=== PATIENT | female | born 1955 | race Caucasian/White ===

== ENCOUNTER → 2017-04-07 | Outpatient (CLI) | payer BC ==
--- NOTE | 2017-04-07 10:40 | WWHP ---
DATE OF SERVICE; 04/07/2017 CHIEF COMPLAINT: The patient is here for her routine gynecologic exam and mammogram. HPI: This is a 61-year-old G1, P1 with an LMP of 2002. She is status post SHANTEL/BSO for benign reasons. She has noticed a right breast lump, which was first noticed after falling on the right breast in March of 2016. She states it was badly bruised at the time. The lump has gradually gotten slightly smaller according to the patient, but is still there. She is otherwise without complaints. PAST MEDICAL HISTORY: Hypothyroidism, asthma, migraine headaches, TMJ, and chronic back problems. MEDICATIONS: 1. Synthroid 75 mcg daily. 2. Ambien 10 mg p.r.n.. 3. Magnesium 250 mg 1 to 2 daily. 4. Vitamin D3 five thousand units daily. 5. Multivitamin daily. ALLERGIES: No known drug allergies. 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 SOCIAL HISTORY: She briefly smoked in high school, but quit since then. She has about 0 to 2 alcoholic drinks per week and denies drug use. 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 She has been since 1975. FAMILY HISTORY: Mother has renal cancer and hypertension as well as a history of the atrial fibrillation and diabetes. Father had an DC. Maternal aunt and maternal niece had breast cancer. Maternal grandmother also had breast cancer. Grandfather had prostate cancer. REVIEW OF SYSTEMS: She has lost about 9 pounds over the last year. She denies cardiac or GI problems. Respiratory problems, she recently got over a URI PHYSICAL EXAM: Blood pressure 121/79. Height 5 feet 2 inches. Weight 158 pounds. Temperature 98.2, pulse 80. This is a well-developed, well-nourished white female who is alert and oriented x3, in no acute distress. HEENT is within normal limits. NECK: Supple without mass or thyromegaly. CHEST AND LUNGS: Clear to auscultation. HEART: Regular rate and rhythm. Breasts, there is palpable mass in the right breast at approximately the 10 o'clock position. This measures approximately 2 x 1 cm and is somewhat firm and nontender. This is the area that she states she has noticed a since falling on the breast. The rest of the breasts are without mass or discharge. Axillary exam is negative for adenopathy. BACK: Negative for CVA tenderness. ABDOMEN: Soft, nontender, without palpable masses. PELVIC EXAM: External genitalia reveals mild atrophy without lesions. Vagina reveals mild atrophy without lesions. There is no evidence of prolapse. Bimanual exam is negative for mass or tenderness. Rectovaginal exam is negative for mass or tenderness and is negative for occult blood. EXTREMITIES: Nontender. IMPRESSION: 1. A 61-year-old menopausal female who is status post total abdominal hysterectomy/bilateral salpingo-oophorectomy for benign reasons. 2. Right breast mass, which was noticed after trauma to the breast. Differential diagnosis will include a benign mass secondary to breast trauma as well as other breast neoplasm. PLAN: 1. Pap smears have been discontinued. 2. Self breast examination was discussed. 3. Diagnostic mammogram with right breast ultrasound will be done today. The palpable lump was marked. 4. Osteoporosis prevention was discussed. We will plan on repeating her bone density test next year. Her last one was normal in 2008. 5. She will return in one year.
--- NOTE | 2017-04-07 11:34 | MM ---
Reason for exam: clinical finding. Last mammogram was performed 1 year ago. History: Patient is postmenopausal. Family history of breast cancer in maternal grandmother at age 80 and breast cancer in maternal aunt at age 70. Benign right mammotome panel of the right breast, April 14, 2008. Reductions of both breasts, 1985. Took hormonal contraceptives for 2 years. Took estrogen for 1 year 5 months beginning at age 53. Physical Findings: Nurse did not find any significant physical abnormalities on exam. MG 3D Diag Mammo W/Cad NEW Bilateral CC and MLO view(s) were taken. Prior study comparison: April 02, 2016, bilateral MG 3d screening mammo w/cad. March 13, 2015, bilateral MG screening mammo w CAD. March 08, 2014, bilateral digital screening mammo w/CAD. There are scattered fibroglandular densities. Previous mammotome biopsy within the right breast. 3 new mixed density focal asymmetrys suspected to represent large early oil cysts in the upper outer quadrant right breast, the larger of which correspond to the palpable site. These results were verbally communicated with the patient and result sheet given to the patient on 04/07/17. ASSESSMENT: Incomplete: need additional imaging evaluation, BI-RAD 0 RECOMMENDATION: Ultrasound of the right breast.
--- NOTE | 2017-04-07 11:40 | USB ---
Reason for exam: additional evaluation requested from abnormal screening. History: Patient is postmenopausal. Family history of breast cancer in maternal grandmother at age 80 and breast cancer in maternal aunt at age 70. Benign right mammotome panel of the right breast, April 14, 2008. Reductions of both breasts, 1985. Took hormonal contraceptives for 2 years. Took estrogen for 1 year 5 months beginning at age 53. US Breast RT Right breast ultrasound includes all four quadrants, the retroareolar region and axilla. Finding demonstrates a 11 x 7 x 5 mm cystic complex lesion at 8 o'clock , a 15 x 12 x 13mm cystic complex lesion at 10 o'clock, 5 cm from nipple. The larger is at the palpable site. Debris filled oil cysts or hematomas with retractile clot are favored relating to the patients injury. These results were verbally communicated with the patient and result sheet given to the patient on 04/07/17. ASSESSMENT: Probably benign, BI-RAD 3 RECOMMENDATION: Follow-up diagnostic mammogram of the right breast in 6 months. SHALOM
== END | disposition home or self-care (01) ==
LOC: WWCWWP 09:25
PROVIDERS: ATTEND Obstetrics & Gynecology
DX: R92.8 Other abnormal and inconclusive findings on diagnostic imaging of breast (principal); N63 Unspecified lump in breast
CPT/HCPCS: 76641; G0204; G0279

== ENCOUNTER → 2017-10-08 | Outpatient (CLI) | payer BC ==
--- NOTE | 2017-10-08 11:18 | MM ---
Reason for exam: follow-up at short interval from prior study. Last mammogram was performed 6 months ago. History: Patient is postmenopausal. Family history of breast cancer in maternal grandmother at age 80 and breast cancer in maternal aunt at age 70. Benign right mammotome panel of the right breast, April 14, 2008. Reductions of both breasts, 1985. Took hormonal contraceptives for 2 years. Took estrogen for 1 year 5 months beginning at age 53. Physical Findings: Nurse Summary: 2 x 2cm nodule in the right breast at 10 o'clock (nurse ts). MG 3D Diag Mammo W/Cad RT CC and MLO view(s) were taken of the right breast. Prior study comparison: April 07, 2017, bilateral MG 3d diag mammo w/cad NEW. April 02, 2016, bilateral MG 3d screening mammo w/cad. There are scattered fibroglandular densities. Finding #1: There is a stable 15 mm circumscribed round mass in the upper outer quadrant of the right breast. Finding #2: There are typically benign round calcifications in the right breast. Previous mammotome biopsy in the right breast. There is no dominant lesion. These results were verbally communicated with the patient and result sheet given to the patient on 10/08/17. ASSESSMENT: Incomplete: need additional imaging evaluation, BI-RAD 0 RECOMMENDATION: Ultrasound of the right breast.
--- NOTE | 2017-10-08 11:20 | USB ---
Reason for exam: additional evaluation requested from abnormal screening. History: Patient is postmenopausal. Family history of breast cancer in maternal grandmother at age 80 and breast cancer in maternal aunt at age 70. Benign right mammotome panel of the right breast, April 14, 2008. Reductions of both breasts, 1985. Took hormonal contraceptives for 2 years. Took estrogen for 1 year 5 months beginning at age 53. US Breast Limited RT Right breast ultrasound demonstrates a 0.5 x 0.5 x 1.1cm round, mixed, stable lesion at 8 o'clock, a 1.2 x 1.3 x 0.9cm oval, mixed lesion at 10 o'clock slightly smaller and a 0.4 x 1.0 x 0.4cm vague, mixed lesion at 9 o'clock. These results were verbally communicated with the patient and result sheet given to the patient on 10/08/17. ASSESSMENT: Probably benign, BI-RAD 3 RECOMMENDATION: Ultrasound of the right breast in 3 months.
== END | disposition home or self-care (01) ==
LOC: RADMAMWWP 08:54
PROVIDERS: ATTEND Obstetrics & Gynecology
DX: R92.8 Other abnormal and inconclusive findings on diagnostic imaging of breast (principal)
CPT/HCPCS: 76642; G0206; G0279

== ENCOUNTER → 2018-04-27 | Outpatient (CLI) | payer BC ==
[2018-04-27 13:39] VITALS: BP 142/84; PULSE 91; TEMP 98.5; BMI 30.9
--- NOTE | 2018-04-27 14:13 | P.HPOB ---
History of Present Illness H&P Date: 04/27/18 Chief Complaint: The patient is here for her routine gynecologic exam and mammogram. This is a 62-year-old with an LMP of 2002. The patient is status post SHANTEL BSO for benign reasons. She does have a history of a right breast lump since March 2016. After her mammogram and six-month right breast ultrasound, a repeat right breast ultrasound was recommended after 3 months. This was due in December of this year. She did not have this done. She is without gynecologic complaints. She does think that the right breast mass has gotten smaller. Review of Systems The patient has gained 11 pounds over the last year. She denies respiratory or cardiac problems. G.I.: she has occasional heartburn. Past Medical History Past Medical History: Asthma, Thyroid Disorder (Hypothyroid) Additional Past Medical History / Comment(s): Chronic back problems, migraine headaches and TMJ. 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 She has no history of STDs. History of Any Multi-Drug Resistant Organisms: None Reported Past Surgical History: Breast Surgery (Bilateral breast reduction), Hysterectomy (SHANTEL BSO in 2002), Tonsillectomy Additional Past Surgical History / Comment(s): Colonoscopy in 2005. Past Psychological History: No Psychological Hx Reported Smoking Status: Former smoker (Quit after high school) Past Alcohol Use History: Occasional Past Drug Use History: None Reported Additional History: She has been since 1975. 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 - Past Family History Mother Family Medical History: AFIB, Cancer (Renal), Hypertension Additional Family Medical History / Comment(s): Maternal grandmother and maternal aunt had breast cancer. Grandfather had prostate cancer. Father Family Medical History: Myocardial Infarction ([place]) Medications and Allergies Home Medications Medication Instructions Recorded Confirmed Type Calcium Carbonate [Calcium] mg PO DAILY 04/27/18 History Levothyroxine Sodium [Synthroid] mcg PO DAILY 04/27/18 History Multivitamin [Multivitamins Adult tab PO DAILY 04/27/18 History Gummies] Allergies Allergy/AdvReac Type Severity Reaction Status Date / Time No Known Allergies Allergy Verified 04/27/18 13:36 Exam - Vital Signs Vital signs: Vital Signs Temp Pulse BP 04/27/18 13:36 98.5 F 91 142/84 Intake and Output 04/26/18 04/27/18 04/27/18 22:59 06:59 14:59 Other: Weight 76.657 kg Height 5'2", BMI 30.9. This is a well-developed well-nourished white female who is alert and oriented times 3 in no acute distress. HEENT: Within normal limits. NECK: Supple without mass or thyromegaly. CHEST AND LUNGS: Clear to auscultation. HEART: Regular rate and rhythm. BREASTS: there is a palpable mass in the right breast is approximately the 10 o' clock position. This measures 1.5 cm and his firm and nontender. There are no other palpable breast masses or tenderness. There is no nipple discharge. There is no dimpling. AXILLARY EXAM: Negative for adenopathy. BACK: Negative for CVA tenderness. ABDOMEN: Soft, nontender, without palpable masses. PELVIC EXAM: External genitalia appears normal with mild atrophy. Vagina appears normal with mild atrophy. There is no evidence of prolapse. Bimanual examination is negative for mass or tenderness. RECTAL EXAM: Rectovaginal exam is negative for mass or tenderness and is negative for occult blood. EXTREMITIES: Nontender. IMPRESSION: 1. 62-year-old menopause female status post SHANTEL BSO for benign reasons with normal pelvic exam. 2. Right breast mass which has decreased in size per the patient PLAN: 1. Pap smears have been discontinued. 2. Self breast awareness was discussed. 3. Diagnostic mammogram will be done today. 4. I have recommended screening colonoscopy since it is been more than 10 years since her last one. She states she is looking into doing this. 5. Osteoporosis prevention was discussed. A bone density order slip was given to the patient. 6. She will return in one year.
--- NOTE | 2018-04-27 15:00 | MM ---
Reason for exam: follow-up at short interval from prior study. Last mammogram was performed 7 months ago. History: Patient is postmenopausal. Family history of breast cancer in maternal grandmother at age 80 and breast cancer in maternal aunt at age 70. Benign right mammotome panel of the right breast, April 14, 2008. Reductions of both breasts, 1985. Took hormonal contraceptives for 2 years. Took estrogen for 1 year 5 months beginning at age 53. Physical Findings: Nurse Summary: 1.5cm nodule in the right breast at 10 o'clock (Dr. Gentile). MG 3D Diag Mammo W/Cad NEW Bilateral CC and MLO view(s) were taken. Prior study comparison: October 08, 2017, right breast MG 3d diag mammo w/cad RT. April 07, 2017, bilateral MG 3d diag mammo w/cad NEW. There are scattered fibroglandular densities. Palpable area was seen previously and is felt to reflect calcification oil cyst. No suspicious mass. These results were verbally communicated with the patient and result sheet given to the patient on 04/27/18. ASSESSMENT: Benign, BI-RAD 2 RECOMMENDATION: Routine screening mammogram of both breasts in 1 year. Manage patient on a clinical basis.
== END | disposition home or self-care (01) ==
LOC: WWCWWP 13:24
PROVIDERS: ATTEND Obstetrics & Gynecology
DX: R92.8 Other abnormal and inconclusive findings on diagnostic imaging of breast (principal)
CPT/HCPCS: 77062; 77066

== ENCOUNTER 2018-05-06 09:37 | Day surgery (SDC) | payer BC ==
[2018-05-04 11:09] VITALS: BMI 31.1
[~2018-05-06 09:37] MED LIST: LACTATED RINGERS 1,000 ML IV SCH; MIDAZOLAM 2 MG/2 ML VIAL IV PRN
[2018-05-06 10:27] VITALS: RESP 16; TEMP 98.7
[2018-05-06] MEDS ORDERED: LIDOCAINE 1% 20 ML VIAL (10MG/ML) FOR IV START INTRADERMA ONE (10:43)
[2018-05-06] MEDS ORDERED: LIDOCAINE 1% INJ 10MG/ML (20 ML MDV) ONE (10:55)
[2018-05-06] MEDS ORDERED: PROPOFOL 10 MG/ML 20 ML VIAL IV ONE (10:55)
--- NOTE | 2018-05-06 11:13 | P.PCN ---
Date of Procedure: 05/06/18 Procedure(s) Performed: BRIEF HISTORY: Patient is a 62-year-old pleasant white female, scheduled for an elective colonoscopy as a part of screening for colorectal neoplasia. PROCEDURE PERFORMED: Colonoscopy. PREOPERATIVE DIAGNOSIS: Screening for colon cancer. IV sedation per Anesthesia. PROCEDURE: After informed consent was obtained, the patient, was brought into the endoscopy unit. IV sedation was administered by Anesthesia under continuous monitoring. Digital rectal examination was normal. Initially the Olympus CF- 160 flexible video colonoscope was then inserted in the rectum, gradually advanced into the cecum without any difficulty. Careful examination was performed as the scope was gradually being withdrawn. Ileocecal valve and the appendiceal orifice were visualized and appeared normal. Prep was excellent. Mucosa of the cecum, ascending colon, transverse colon, descending colon, sigmoid colon, and rectum appeared normal. Retroflexion was performed in the rectum and no lesions were seen. The patient tolerated the procedure well. IMPRESSION: Normal-appearing colon from rectum to cecum with no evidence of colorectal neoplasia . RECOMMENDATIONS: Findings of this examination were discussed with the patient as well as a family. She was advised to have a repeat screening colonoscopy in 10 years.
[2018-05-06 12:01] VITALS: BP 106/64; PULSE 66
== END 2018-05-06 12:10 | disposition home or self-care (01) ==
LOC: ORWHC2ENDO 09:37
PROVIDERS: ATTEND Internal Medicine Gastroenterology
DX: Z12.11 Encounter for screening for malignant neoplasm of colon (principal); J45.909 Unspecified asthma, uncomplicated; K21.9 Gastro-esophageal reflux disease without esophagitis; E07.9 Disorder of thyroid, unspecified; Z88.1 Allergy status to other antibiotic agents; Z79.890 Hormone replacement therapy; Z79.899 Other long term (current) drug therapy
CPT/HCPCS: G0121; J2001; J2704

== ENCOUNTER → 2018-09-28 | Outpatient (CLI) | payer BC ==
[2018-09-28 11:53] LABS: Basophils % (A) 1 %; Eosinophils # (A) 0.1 k/uL (0-0.7); Eosinophils % (A) 1 %; HCT 45.5 % (34.0-46.0); HGB 15.1 gm/dL (11.4-16.0); Lymphocytes % (A) 35 %; MCH 31.4 pg (25.0-35.0); MCHC 33.2 g/dL (31.0-37.0); MCV 94.5 fL (80.0-100.0); Mean Platelet Volume 7.4; Monocytes # (A) 0.3 k/uL (0-1.0); Monocytes % (A) 5 %; Neutrophils # (A) 3.2 k/uL (1.3-7.7); Neutrophils % (A) 56 %; Platelet Count 243 k/uL (150-450); RBC 4.81 m/uL (3.80-5.40); RDW 12.5 % (11.5-15.5); WBC 5.8 k/uL (3.8-10.6)
[2018-09-28 17:13] LABS: Albumin 4.6 g/dL (3.80-4.90); Albumin/Globulin Ratio 2.19 (1.20-2.10); Anion Gap 7.3 mmol/L (4.00-12.00); Calcium 9.4 mg/dL (8.7-10.3); Carbon Dioxide 28.7 mmol/L (21.6-31.8); Globulin 2.1 g/dL (2.1-3.7); LDL Cholesterol,Calculated 107.4 mg/dL (0.0-131.0); Potassium 4.6 mmol/L (3.5-5.5); Total Bilirubin 0.4 mg/dL (0.2-1.2); Total Protein 6.7 g/dL (6.2-8.2); VLDL Calculation 15.6 mg/dL (5.00-40.00)
[2018-09-28 17:19] LABS: T4, Free (Free Thyroxine) 1.4 ng/dL (0.80-1.80)
[2018-09-28 20:13] LABS: Hemoglobin A1C 5.7 % (4.0-6.0)
== END ==
LOC: LABWHC1 10:20
PROVIDERS: ATTEND Internal Medicine Critical Care Medicine
DX: Z00.00 Encounter for general adult medical examination without abnormal findings (principal); E55.9 Vitamin D deficiency, unspecified; E03.9 Hypothyroidism, unspecified; J32.9 Chronic sinusitis, unspecified; J45.909 Unspecified asthma, uncomplicated
CPT/HCPCS: 36415; 80053; 80061; 82306; 83036; 84439; 84443; 85025

== ENCOUNTER → 2019-05-03 | Outpatient (CLI) | payer BC ==
[2019-05-03 12:56] VITALS: BP 135/87; PULSE 85; RESP 16; TEMP 98.4; BMI 32.9
--- NOTE | 2019-05-03 14:10 | P.HPOB ---
History of Present Illness H&P Date: 05/03/19 Chief Complaint: The patient is here for her routine gynecologic exam and ma mmogram. This is a 63-year-old with an LMP of 2002. She is status post SHANTEL BSO for benign reasons. She is without gynecologic complaints. She is currently undergoing genetic cancer testing because of her strong family history including a niece that had breast cancer at age 30. She has gone to the [facility] for the testing and counseling. Review of Systems The patient has gained 10 to 15 pounds over the last year. She denies respiratory, cardiac, or G.I. problems except recently had some loose stool. Past Medical History Past Medical History: Asthma, Thyroid Disorder Additional Past Medical History / Comment(s): Chronic back problems, migraine headaches and TMJ. Hypothyroid. 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 She has no history of STDs. History of Any Multi-Drug Resistant Organisms: None Reported Past Surgical History: Breast Surgery, Hysterectomy, Tonsillectomy Additional Past Surgical History / Comment(s): Colonoscopy in 2005. Past Psychological History: No Psychological Hx Reported Smoking Status: Former smoker Past Alcohol Use History: Occasional Past Drug Use History: None Reported Additional History: She quit smoking after high school. 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 - Past Family History Mother Family Medical History: AFIB, Cancer, Hypertension Additional Family Medical History / Comment(s): Renal cancer. Maternal grandmother and maternal aunt had breast cancer. Grandfather had prostate cancer. Father Family Medical History: Myocardial Infarction ([place]) Sister(s) Family Medical History: Cancer Additional Family Medical History / Comment(s): Breast cancer. This sister's daughter had breast cancer at age 30. Another daughter of hers had the bilateral mastectomies for atypical cells. Medications and Allergies Home Medications Medication Instructions Recorded Confirmed Type Calcium Carbonate [Calcium] 600 mg PO DAILY 04/27/18 05/03/19 History Levothyroxine Sodium [Synthroid] 75 mcg PO DAILY 04/27/18 05/03/19 History Multivitamin [Multivitamins Adult 1 tab PO DAILY 04/27/18 05/03/19 History Gummies] Cholecalciferol [Vitamin D3] 1,000 unit PO DAILY 05/04/18 05/03/19 History Albuterol Inhaler [Ventolin Hfa 2 puff INHALATION RT-Q6H PRN 05/05/18 05/03/19 History Inhaler] Magnesium 200 mg PO 05/03/19 History Allergies Allergy/AdvReac Type Severity Reaction Status Date / Time levofloxacin [From Levaquin] Allergy Swelling Verified 05/03/19 12:56 Exam Vital Signs Temp Pulse Resp BP Pulse Ox 05/03/19 12:50 98.4 F 85 16 135/87 97 Intake and Output 05/02/19 05/03/19 05/03/19 22:59 06:59 14:59 Other: Weight 81.647 kg Height 5'2", weight 180 pounds, BMI 32.9. This is a well-developed well-nourished white female who is alert and oriented times 3 in no acute distress. HEENT: Within normal limits. NECK: Supple without mass or thyromegaly. CHEST AND LUNGS: Clear to auscultation. HEART: Regular rate and rhythm. BREASTS: Are without mass or discharge. Consistent with previous breast reduction surgery. AXILLARY EXAM: Negative for adenopathy. BACK: Negative for CVA tenderness. ABDOMEN: Soft, nontender, without palpable masses. PELVIC EXAM: External genitalia appears normal with mild atrophy. Vagina appe ars normal with mild atrophy. There is no evidence of prolapse. Bimanual examination is negative for mass or tenderness. RECTAL EXAM: Rectovaginal exam is negative for mass or tenderness and is negati ve for occult blood. EXTREMITIES: Nontender. IMPRESSION: 1. 63-year-old menopausal female with normal gynecologic exam. 2. Strong family history of breast cancer. The patient is currently undergoing genetic cancer counseling and testing at [facility]. PLAN: 1. Pap smears have been discontinued. 2. Self breast awareness was discussed with the patient. 3. Screening mammogram will be done today. The patient states she will have results from her genetic cancer testing and any recommendations sent to me. 4. Osteoporosis prevention was discussed. I have stressed the importance of adequate calcium, vitamin D and regular exercise. Recommended amounts of calcium and vitamin D were also discussed. I have recommended bone density screening since it has been about 10 years. The order slip was given to the patient for this. 5. She was advised to return in one year for her annual well woman exam.
--- NOTE | 2019-05-04 11:46 | MM ---
Reason for exam: screening (asymptomatic). Last mammogram was performed 1 year ago. History: Patient is postmenopausal. Family history of breast cancer in maternal grandmother at age 80 and breast cancer in maternal aunt at age 70. Benign right mammotome panel of the right breast, April 14, 2008. Reductions of both breasts, 1985. Took hormonal contraceptives for 2 years. Took estrogen for 1 year 5 months beginning at age 53. Physical Findings: A clinical breast exam by your physician is recommended on an annual basis and results should be correlated with mammographic findings. MG 3D Screening Mammo W/Cad Bilateral CC and MLO view(s) were taken. Prior study comparison: April 27, 2018, bilateral MG 3d diag mammo w/cad NEW. October 08, 2017, right breast MG 3d diag mammo w/cad RT. There are scattered fibroglandular densities. The right upper outer quadrant grouped calcifications that now appear linear spanning 1.9cm adjacent to fat necrosis. ASSESSMENT: Incomplete: need additional imaging evaluation, BI-RAD 0 RECOMMENDATION: Special view mammogram of the right breast. [facility] will attempt to contact patient to return for supplemental views.
== END ==
LOC: WWCWWP 12:28
PROVIDERS: ATTEND Obstetrics & Gynecology
DX: Z12.31 Encounter for screening mammogram for malignant neoplasm of breast (principal)
CPT/HCPCS: 77063; 77067

== ENCOUNTER → 2019-05-11 | Outpatient (CLI) | payer BC ==
--- NOTE | 2019-05-11 13:16 | MM ---
Reason for exam: additional evaluation requested from abnormal screening. Last mammogram was performed less than 1 month ago. History: Patient is postmenopausal. Family history of breast cancer in maternal grandmother at age 80, breast cancer in maternal aunt at age 70, and breast cancer in sister at age 59. Benign right mammotome panel of the right breast, April 14, 2008. Reductions of both breasts, 1985. Took hormonal contraceptives for 2 years. Took estrogen for 1 year 5 months beginning at age 53. Physical Findings: Nurse did not find any significant physical abnormalities on exam. MG 3D Work Up W/Cad RT CC with magnification, ML with magnification, and ML view(s) were taken of the right breast. Prior study comparison: May 03, 2019, bilateral MG 3d screening mammo w/cad. April 27, 2018, bilateral MG 3d diag mammo w/cad NEW. There are scattered fibroglandular densities. There is a 1.8cm group of calcifications in the right upper outer quadrant that although are rounded, they are in a linear distribution and there biopsy is recommended. ASSESSMENT: Suspicious, BI-RAD 4 RECOMMENDATION: Ultrasound core biopsy of the right breast. Called Dr. Gentile with mammographic findings and has scheduled an appointment for the patient for 07/06/19 at 1:[address] Jarrell. Biopsy scheduled for 06/09/19 at 10:20. PRELIMINARY REPORT CALLED AND FAXED TO DR. JARRELL ON 05/11/19.
== END ==
LOC: RADMAMWWP 10:44
PROVIDERS: ATTEND Obstetrics & Gynecology
DX: R92.8 Other abnormal and inconclusive findings on diagnostic imaging of breast (principal)
CPT/HCPCS: 77061; 77065

== ENCOUNTER → 2019-06-09 | Day surgery (SDC) | payer BC ==
[2019-06-09 10:03] VITALS: RESP 16; BMI 30.9
[2019-06-09 11:53] VITALS: BP 130/78; PULSE 71; TEMP 97.6
--- NOTE | 2019-06-09 13:16 | MM ---
EXAMINATION TYPE: MG stereo VAD BX RT DATE OF EXAM: 06/09/2019 COMPARISON: Recent diagnostic mammogram of 05/11/2019 CLINICAL HISTORY: 1.8 cm curvilinear calcifications in the left breast adjacent to fat necrosis. Calcifications are indeterminate given their linear distribution and stereotactic guided biopsy was recommended. TECHNIQUE: Stereotactic guided core biopsy of right breast. FINDINGS: The procedure of stereotactic guided core biopsy was explained to the patient. Benefits, alternatives, and risks were discussed. An informed consent was then obtained. Preprocedural timeout was performed. The shortness pathway for biopsy was chosen. Shortness pathway was lateral to medial approach. Preprocedural localization images were obtained and a 1.8 cm linear group of calcifications within the upper outer quadrant of the right breast at anterior depth was demonstrated. Coordinates were calculated. Subsequently 10 cc of lidocaine without epinephrine was utilized to anesthetize the skin and deeper subcutaneous soft tissues. The needle was advanced to the appropriate depth. Prefire images were obtained ensuring appropriate location. Postfire injection of 10 cc of lidocaine with epinephrine was utilized to anesthetize the site of biopsy. A vacuum assisted biopsy gun was used to obtain 7 core samples. The patient tolerated the procedure well without any immediate complication. The patient was kept in the radiology department for short stay after the procedure and then discharged home in stable condition. Targeted calcifications are identified in specimen mammogram. Post biopsy mammogram shows the biopsy marker to appear in satisfactory position relative to the targeted area of concern on the preprocedure images without migration. IMPRESSION: SUCCESSFUL, UNCOMPLICATED STEREOTACTIC GUIDED CORE BIOPSY OF A LINEAR 1.8 CM GROUP OF CALCIFICATIONS ADJACENT TO FAT NECROSIS, FULL PATHOLOGY RESULTS TO FOLLOW. Pathology Results: Benign RIGHT BREAST, STEREOTACTIC CORE BIOPSY: Scar with hemosiderin laden histiocytes and calcifications. Background fibrocystic changes including cysts and fibrosis. Negative for malignancy. Recommendation Follow up mammogram of the right breast in 6 months. SHALOM
== END ==
LOC: RADMAMWWP 09:41
PROVIDERS: ATTEND Surgery
DX: N64.89 Other specified disorders of breast (principal); L90.5 Scar conditions and fibrosis of skin; N60.11 Diffuse cystic mastopathy of right breast; N64.1 Fat necrosis of breast
CPT/HCPCS: 19081; 88305; A4648; J2001

== ENCOUNTER → 2019-10-21 | Outpatient (CLI) | payer BC ==
[2019-10-21 07:49] LABS: Basophils # (A) 0.1 k/uL (0-0.2); Basophils % (A) 1 %; Eosinophils # (A) 0.1 k/uL (0-0.7); Eosinophils % (A) 2 %; HCT 45.5 % (34.0-46.0); Lymphocytes # (A) 2.1 k/uL (1.0-4.8); Lymphocytes % (A) 33 %; MCH 33.3 pg (25.0-35.0); MCHC 35.1 g/dL (31.0-37.0); MCV 94.7 fL (80.0-100.0); Mean Platelet Volume 7.3; Monocytes # (A) 0.3 k/uL (0-1.0); Monocytes % (A) 5 %; Neutrophils # (A) 3.5 k/uL (1.3-7.7); Neutrophils % (A) 56 %; Platelet Count 215 k/uL (150-450); RDW 12.2 % (11.5-15.5); WBC 6.3 k/uL (3.8-10.6)
[2019-10-21 07:56] LABS: Prothrombin Time 10.3 sec (9.0-12.0)
[2019-10-21 07:57] LABS: Partial Thromboplastin Time 26.8 sec (22.0-30.0)
[2019-10-21 12:13] LABS: African American GFR (CKD) 90.9 (60.0-200.0); Albumin 4.7 g/dL (3.80-4.90); Albumin/Globulin Ratio 2.14 (1.60-3.17); Anion Gap 7.8 mmol/L (4.00-12.00); Calcium 9.8 mg/dL (8.7-10.3); Carbon Dioxide 30.2 mmol/L (21.6-31.8); Chol/HDL Ratio 3.39; Globulin 2.2 g/dL (1.6-3.3); LDL Cholesterol,Calculated 118.2 mg/dL (0.0-131.0); Non-African American GFR(CKD) 78.5 (60.0-200.0); Potassium 4.5 mmol/L (3.5-5.5); Total Bilirubin 0.7 mg/dL (0.3-1.2); Total Protein 6.9 g/dL (6.2-8.2); VLDL Calculation 22.8 mg/dL (5.00-40.00)
[2019-10-21 12:22] LABS: T4, Free (Free Thyroxine) 1.4 ng/dL (0.80-1.80)
[2019-10-21 14:43] LABS: Hemoglobin A1C 5.6 % (4.0-6.0)
== END ==
LOC: LABWHC1 07:25
PROVIDERS: ATTEND Internal Medicine Critical Care Medicine
DX: Z00.00 Encounter for general adult medical examination without abnormal findings (principal); F32.9 Major depressive disorder, single episode, unspecified; J32.9 Chronic sinusitis, unspecified; T14.8XXA Other injury of unspecified body region, initial encounter; F41.9 Anxiety disorder, unspecified; M26.609 Unspecified temporomandibular joint disorder, unspecified side; E55.9 Vitamin D deficiency, unspecified
CPT/HCPCS: 36415; 80053; 80061; 82306; 83036; 84439; 84443; 85025; 85610; 85730

== ENCOUNTER → 2020-07-24 | Outpatient (CLI) | payer BC ==
[2020-07-24 10:50] VITALS: BP 112/72; PULSE 71; RESP 18; TEMP 98.6
--- NOTE | 2020-07-24 11:30 | P.HPOB ---
History of Present Illness H&P Date: 07/24/20 Chief Complaint: The patient is here for her routine gynecologic exam and ma mmogram. This is a 64-year-old with an LMP of 2002. Patient is status post SHANTEL/BSO for benign reasons and is without gynecologic complaints. Review of Systems The patient has lost 12 pounds over the last year. She denies respiratory, cardiac, or G.I. problems. Past Medical History Past Medical History: Asthma, Thyroid Disorder Additional Past Medical History / Comment(s): Chronic back problems, migraine headaches and TMJ. Hypothyroid. 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 She has no history of STDs. BRCA neg (1 &2). History of Any Multi-Drug Resistant Organisms: None Reported Past Surgical History: Breast Surgery, Hysterectomy, Tonsillectomy Additional Past Surgical History / Comment(s): Colonoscopy in 2005, 2018 (both were negative). bilateral breast reduction 1984; Right breast core bx (benign 2007), Hematoma in right breast from a fall sustained in the bathtub in 2015 (this area showed changes/calcifications on mammogram in 2018 which led to scheduling of a Right breast stereotactic bx being ordered for 06/09/19). 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 - Past Family History Mother Family Medical History: AFIB, Cancer, Congestive Heart Failure (CHF), Hypertension Additional Family Medical History / Comment(s): Renal cancer. Maternal grandmother and maternal aunt had breast cancer. Grandfather had prostate cancer. Father Family Medical History: Myocardial Infarction ([place]) Sister(s) Family Medical History: Cancer Additional Family Medical History / Comment(s): Breast cancer. This sister's daughter had breast cancer at age 30. Another daughter of hers had the bilateral mastectomy for atypical cells. Medications and Allergies Home Medications Medication Instructions Recorded Confirmed Type Calcium Carbonate [Calcium] 600 mg PO DAILY 04/27/18 07/24/20 History Levothyroxine Sodium [Synthroid] 75 mcg PO QAM 04/27/18 07/24/20 History Cholecalciferol [Vitamin D3] 5,000 unit PO DAILY 05/04/18 07/24/20 History Magnesium 500 mg PO DAILY 05/03/19 07/24/20 History Ascorbic Acid [Vitamin C] 1,000 mg PO DAILY 07/24/20 07/24/20 History Boswellia 250 mg PO DAILY 07/24/20 07/24/20 History Turmeric Root Extract [Turmeric] 500 mg PO DAILY 07/24/20 07/24/20 History Ultimate Eye Support 2 tab PO DAILY 07/24/20 07/24/20 History Vitamin C/Biotin [Hair, Skin and 2 tab PO DAILY 07/24/20 07/24/20 History Nails] Allergies Allergy/AdvReac Type Severity Reaction Status Date / Time levofloxacin [From Levaquin] Allergy Swelling Verified 07/24/20 10:41 NSAIDS (Non-Steroidal AdvReac Unknown Unverified 07/24/20 10:41 Anti-Inflamma Exam Vital Signs Temp Pulse Resp BP Pulse Ox 07/24/20 10:46 98.6 F 71 18 112/72 97 Intake and Output 07/23/20 07/24/20 07/24/20 22:59 06:59 14:59 Other: Weight 76.204 kg Height 5 feet 3 inches, weight 168 pounds, BMI 29.8. This is a well-developed well-nourished white female who is alert and oriented times 3 in no acute distress. HEENT: Within normal limits. NECK: Supple without mass or thyromegaly. CHEST AND LUNGS: Clear to auscultation. HEART: Regular rate and rhythm. BREASTS: There is a firm area approximately 1 x 1.5 cm at the 9 o'clock position of the right breast where she has had chronically firm area following an injury. This has been previously biopsied. She states it is unchanged. AXILLARY EXAM: Negative for adenopathy. BACK: Negative for CVA tenderness. ABDOMEN: Soft, nontender, without palpable masses. PELVIC EXAM: External genitalia appears normal with mild atrophy. Vagina appears normal mild atrophy. There is no evidence of prolapse. Bimanual examination is negative for mass or tenderness. RECTAL EXAM: Rectovaginal exam is negative for mass or tenderness and is negative for occult blood. EXTREMITIES: Nontender. IMPRESSION: 1. 64-year-old menopausal female status post SHANTEL/BSO for benign reasons with normal gynecologic exam. 2. Chronic breast nodularity with stable right breast mass which has been previously biopsied and found to be benign. 3. Strong family history of breast cancer with negative BRCA testing for types 1 and 2. PLAN: 1. Pap smears have been discontinued. 2. Self breast awareness was discussed with the patient. 3. Screening mammogram will be done today. 4. Osteoporosis prevention was discussed. I have stressed the importance of adequate calcium, vitamin D and regular exercise. Recommended amounts of calcium and vitamin D were also discussed. Bone density test will be done today. Her previous bone density test was more than 10 years ago. 5. She was advised to return in one year for her annual well woman exam.
--- NOTE | 2020-07-24 12:03 | BD ---
EXAMINATION TYPE: Axial Bone Density DATE OF EXAM: 07/24/2020 COMPARISON: 11/19/2009 CLINICAL HISTORY: Height: 62 IN Weight: 164 LBS FRAX RISK QUESTIONS: 5. Chronic liver disease: FATTY LIVER RISK FACTORS HISTORY OF: Spine Fracture: T3 AGE 56 Active: YES Postmenopausal woman: TOTAL HYST AGE 47 Take estrogen and/or progesterone medications: NOT NOW How long: TOOK ESTROGEN AGE 53-54 MEDICATIONS: Thyroid Medications: YES Which medication: Levothyroxine How Lon+ YEARS Additional Medications: LEVOTHYROXINE, CALCIUM, VIT D, HAIR SKIN NAILS, MAGNESIUM, VIT C, BOSWELLIA, OMEGA 3, TURMERIC, ULTIMATE EYE SUPPORT EXAM MEASUREMENTS: Bone mineral densitometry was performed using the [employer] (roll.to) System. Bone mineral density as measured about the Lumbar spine is: ----- L1-L4(G/cm2): 1.321 T Score Values are as follows: ----- L2: 0.6 ----- L3: 0.9 ----- L4: 1.4 ----- L1-L4: 1.2 Bone mineral density has: Decreased -2.4% since study of: 11/19/2009 Bone mineral density about the R hip (g/cm2): 0.993 Bone mineral density about the L hip (g/cm2): 0.986 T Score values are as follows: -----R Neck: -0.3 -----L Neck: -0.4 -----R Total: 0.4 -----L Total: 0.6 Bone mineral density has: Decreased -6.6% since study of: 11/19/2009 IMPRESSION: No evidence for osteoporosis or osteopenia. NOTE: T-SCORE=SD OF THE YOUNG ADULT MEAN.
--- NOTE | 2020-07-25 09:19 | MM ---
Reason for exam: screening (asymptomatic). Last mammogram was performed 1 year and 2 months ago. History: Patient is postmenopausal. Family history of breast cancer in maternal grandmother at age 80, breast cancer in maternal aunt at age 70, and breast cancer in sister at age 59. Benign MG stereo VAD BX RT of the right breast, June 09, 2019. Benign right mammotome panel of the right breast, April 14, 2008. Reductions of both breasts, 1985. Took hormonal contraceptives for 2 years. Took estrogen for 1 year 5 months beginning at age 53. Physical Findings: A clinical breast exam by your physician is recommended on an annual basis and results should be correlated with mammographic findings. MG 3D Screening Mammo W/Cad Bilateral CC and MLO view(s) were taken. Prior study comparison: May 11, 2019, right breast MG 3d work up w/cad RT. May 03, 2019, bilateral MG 3d screening mammo w/cad. There are scattered fibroglandular densities. There is no discrete abnormality. No significant changes when compared with prior studies. ASSESSMENT: Negative, BI-RAD 1 RECOMMENDATION: Routine screening mammogram of both breasts in 1 year.
== END | disposition home or self-care (01) ==
LOC: WWCWWP 10:24
PROVIDERS: ATTEND Obstetrics & Gynecology
DX: Z12.31 Encounter for screening mammogram for malignant neoplasm of breast (principal); Z78.0 Asymptomatic menopausal state
CPT/HCPCS: 77063; 77067; 77080

== ENCOUNTER → 2020-10-15 | Outpatient (CLI) | payer BC ==
[2020-10-15 09:14] LABS: Basophils % (A) 1 %; Eosinophils # (A) 0.1 k/uL (0-0.7); Eosinophils % (A) 2 %; HCT 47.5 % (34.0-46.0); HGB 15.6 gm/dL (11.4-16.0); Lymphocytes # (A) 1.6 k/uL (1.0-4.8); Lymphocytes % (A) 35 %; MCH 31.6 pg (25.0-35.0); MCHC 32.9 g/dL (31.0-37.0); Mean Platelet Volume 8.8; Monocytes # (A) 0.2 k/uL (0-1.0); Monocytes % (A) 5 %; Neutrophils # (A) 2.4 k/uL (1.3-7.7); Neutrophils % (A) 55 %; Platelet Count 183 k/uL (150-450); RBC 4.95 m/uL (3.80-5.40); WBC 4.4 k/uL (3.8-10.6)
[2020-10-15 15:51] LABS: African American GFR (CKD) 90.3 (60.0-200.0); Albumin 4.4 g/dL (3.80-4.90); Anion Gap 8.3 mmol/L (4.00-12.00); BUN/Creat Ratio 18.75 Ratio (12.00-20.00); Calcium 10.5 mg/dL (8.7-10.3); Carbon Dioxide 29.7 mmol/L (21.6-31.8); Chol/HDL Ratio 3.33; Globulin 2.2 g/dL (1.6-3.3); LDL Cholesterol,Calculated 113.6 mg/dL (0.0-131.0); Non-African American GFR(CKD) 77.9 (60.0-200.0); Potassium 4.7 mmol/L (3.5-5.5); Total Bilirubin 0.7 mg/dL (0.2-1.2); Total Protein 6.6 g/dL (6.2-8.2); VLDL Calculation 14.4 mg/dL (5.00-40.00)
[2020-10-15 15:58] LABS: T4, Free (Free Thyroxine) 1.2 ng/dL (0.80-1.80)
[2020-10-15 16:45] LABS: Hemoglobin A1C 5.1 % (4.0-6.0)
== END | disposition home or self-care (01) ==
LOC: LABWHC1 07:53
PROVIDERS: ATTEND Internal Medicine Critical Care Medicine
DX: Z00.00 Encounter for general adult medical examination without abnormal findings (principal); Z79.899 Other long term (current) drug therapy; R05 Cough; R53.83 Other fatigue; E03.9 Hypothyroidism, unspecified; E55.9 Vitamin D deficiency, unspecified
CPT/HCPCS: 36415; 80053; 80061; 82306; 83036; 84439; 84443; 85025

== ENCOUNTER → 2021-09-03 | Outpatient (CLI) | payer MEDICARE, BC ==
[2021-09-03 08:07] VITALS: BP 114/61; PULSE 66; RESP 16; TEMP 99
--- NOTE | 2021-09-03 08:56 | P.HPOB ---
History of Present Illness H&P Date: 09/03/21 Chief Complaint: The patient is here for her routine gynecologic exam and ma mmogram. This is a 65-year-old with an LMP of 2002. She is status post SHANTEL/BSO for benign reasons. She thinks she recently has felt a small lump in the lateral aspect of the right breast. She thinks it is in a different location compared to where her right breast biopsy was done in the past. She is otherwise without complaints. She has lost weight intentionally and has increased her activity. Review of Systems She has lost about 20 pounds over the past year. She states she has been more active and has been trying to lose weight. Respiratory: ALLERGY symptoms. She denies cardiac problems. GI: Last month while she was on a trip developed some epigastric discomfort which resolved and she denies any GI problems at this time. Past Medical History Past Medical History: Asthma, Thyroid Disorder Additional Past Medical History / Comment(s): Chronic back problems, migraine headaches and TMJ. Hypothyroid. 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 She has no history of STDs. BRCA neg (1 &2). History of Any Multi-Drug Resistant Organisms: None Reported Past Surgical History: Breast Surgery, Hysterectomy, Tonsillectomy Additional Past Surgical History / Comment(s): Colonoscopy in 2018 (next after 10yr). bilateral breast reduction 1984; Right breast core bx (benign 2007), Hematoma in right breast from a fall sustained in the bathtub in 2015. Right breast stereotactic bx (benign) 06/09/19. 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 - Past Family History Mother Family Medical History: AFIB, Cancer, Congestive Heart Failure (CHF), Hypertension Additional Family Medical History / Comment(s): Renal cancer. Maternal grandmother and maternal aunt had breast cancer. Grandfather had prostate cancer. Father Family Medical History: Myocardial Infarction ([place]) Sister(s) Family Medical History: Cancer Additional Family Medical History / Comment(s): Breast cancer. This sister's daughter had breast cancer at age 30. Another daughter of hers had the bilateral mastectomy for atypical cells. Medications and Allergies Home Medications Medication Instructions Recorded Confirmed Type Calcium Carbonate [Calcium] 600 mg PO DAILY 04/27/18 09/03/21 History Levothyroxine Sodium [Synthroid] 75 mcg PO QAM 04/27/18 09/03/21 History Cholecalciferol [Vitamin D3] 5,000 unit PO DAILY 05/04/18 09/03/21 History Magnesium 500 mg PO DAILY 05/03/19 09/03/21 History Ascorbic Acid [Vitamin C] 1,000 mg PO DAILY 07/24/20 09/03/21 History Boswellia 250 mg PO DAILY 07/24/20 09/03/21 History Turmeric Root Extract [Turmeric] 500 mg PO DAILY 07/24/20 09/03/21 History Ultimate Eye Support 2 tab PO DAILY 07/24/20 09/03/21 History Vitamin C/Biotin [Hair, Skin and 2 tab PO DAILY 07/24/20 09/03/21 History Nails] Ubidecarenone [Co Q-10] 100 mg PO DAILY 09/03/21 09/03/21 History Allergies Allergy/AdvReac Type Severity Reaction Status Date / Time levofloxacin [From Levaquin] Allergy Swelling Verified 09/03/21 07:58 NSAIDS (Non-Steroidal AdvReac Unknown Unverified 09/03/21 07:58 Anti-Inflamma Exam Vital Signs Temp Pulse Resp BP Pulse Ox 09/03/21 08:01 99.0 F 66 16 114/61 97 Intake and Output 09/02/21 09/03/21 09/03/21 22:59 06:59 14:59 Other: Weight 67.132 kg Height 5 feet 2-1/2 inches, weight 148 pounds, BMI 26.6. This is a well-developed well-nourished white female who is alert and oriented times 3 in no acute distress. HEENT: Within normal limits. NECK: Supple without mass or thyromegaly. CHEST AND LUNGS: Clear to auscultation. HEART: Regular rate and rhythm. BREASTS: The right breast has a palpable nodule at approximately the 8 o'clock position. This is near the surface of the breast. This measures approximately 9 mm. It is nontender. This is among moderate fibrous type tissue noted throughout both breasts. There are no other discrete masses noted. AXILLARY EXAM: Negative for adenopathy. BACK: Negative for CVA tenderness. ABDOMEN: Soft, nontender, without palpable masses. PELVIC EXAM: External genitalia appears normal with mild atrophy. Vagina appears normal with mild atrophy. There is no evidence of prolapse. Bimanual examination is negative for mass or tenderness. RECTAL EXAM: Rectovaginal exam is negative for mass or tenderness and is negative for occult blood. EXTREMITIES: Nontender. IMPRESSION: 1. 65-year-old menopausal female status post SHANTEL/BSO for benign reasons with normal pelvic exam. 2. Small right nodular mass at the 8 o'clock position of the right breast. Differential diagnosis will include fibrocystic type changes which have become more prominent with weight loss, breast cysts, or other breast neoplasm. 3. Strong family history of breast cancer and the patient is BRCA negative (types 1& 2) with 2 variants of undetermined significance. PLAN: 1. Pap smears have been discontinued. 2. Self breast awareness was discussed with the patient. We have also discussed symptoms associated with inflammatory breast cancer. 3. Diagnostic mammogram will be done today. A marker was placed at the area of the palpable nodule. 4. Osteoporosis prevention was discussed. I have stressed the importance of adequate calcium, vitamin D and regular exercise. Recommended amounts of calcium and vitamin D were also discussed. 5. She was advised to return in one year for her annual well woman exam.
--- NOTE | 2021-09-03 11:05 | USB ---
Reason for exam: additional evaluation requested from abnormal screening. History: Patient is postmenopausal. Family history of breast cancer in maternal grandmother at age 80, breast cancer in maternal aunt at age 70, and breast cancer in sister at age 59. Benign MG stereo VAD BX RT of the right breast, June 09, 2019. Benign right mammotome panel of the right breast, April 14, 2008. Reductions of both breasts, 1985. Took hormonal contraceptives for 2 years. Took estrogen for 1 year 5 months beginning at age 53. US Breast Limited RT Technologist: Hallie Munoz Right limited breast ultrasound including focal area of concern, retroareolar and axilla demonstrates a 0.7 x 0.8 x 0.7cm irregular, spiculated, solid, hypoechoic, vascular lesion at 2 o'clock at 2 o'clock. Believed to correspond to mammogram. These results were verbally communicated with the patient and result sheet given to the patient on 09/03/21. ASSESSMENT: Suspicious, BI-RAD 4 RECOMMENDATION: Ultrasound core biopsy of the right breast. Called Dr. Gentile's office with mammographic findings and has scheduled an appointment for the patient for 10/03/21 at 8:[address] Frazier. Biopsy scheduled for 09/16/21 at 1:00. PRELIMINARY REPORT CALLED AND FAXED TO DR. FRAZIER ON 09/03/21.
--- NOTE | 2021-09-03 11:41 | MM ---
Reason for exam: additional evaluation requested from prior study. Last mammogram was performed 1 year and 1 month ago. History: Patient is postmenopausal. Family history of breast cancer in maternal grandmother at age 80, breast cancer in maternal aunt at age 70, and breast cancer in sister at age 59. Benign MG stereo VAD BX RT of the right breast, June 09, 2019. Benign right mammotome panel of the right breast, April 14, 2008. Reductions of both breasts, 1985. Took hormonal contraceptives for 2 years. Took estrogen for 1 year 5 months beginning at age 53. Physical Findings: Nurse Summary: 0.9cm nodule in the right breast at 8 o'clock (Dr. Gentile). MG 3D Diag Mammo W/Cad NEW Bilateral CC and MLO view(s) were taken. XCCL view(s) were taken of the right breast. Prior study comparison: July 24, 2020, bilateral MG 3d screening mammo w/cad. May 03, 2019, bilateral MG 3d screening mammo w/cad. There are scattered fibroglandular densities. Finding #1: There is stable architectural distortion in the upper outer quadrant of the right breast at palpable consistent with reduction changes. Finding #2: There are typically benign round calcifications in both breasts. Previous mammotome biopsy in the right breast x 2. 8mm spiculated round mass middle posterior depth medial aspect 9cm from the nipple. These results were verbally communicated with the patient and result sheet given to the patient on 09/03/21. ASSESSMENT: Incomplete: need additional imaging evaluation, BI-RAD 0 RECOMMENDATION: Ultrasound of the right breast.
== END | disposition home or self-care (01) ==
LOC: WWCWWP 07:30
PROVIDERS: ATTEND Obstetrics & Gynecology
DX: N63.0 Unspecified lump in unspecified breast (principal); Z80.3 Family history of malignant neoplasm of breast; R92.8 Other abnormal and inconclusive findings on diagnostic imaging of breast
CPT/HCPCS: 77066; 76642; G0279; 77062

== ENCOUNTER → 2021-09-16 | Day surgery (SDC) | payer MEDICARE, BC ==
[2021-09-16 12:28] VITALS: RESP 16
[2021-09-16 14:07] VITALS: BP 134/73; PULSE 72; TEMP 98.8
--- NOTE | 2021-09-16 14:46 | USB ---
EXAMINATION TYPE: US biopsy breast VAD RT, US biopsy breast add'l VAD RT, MG diagnostic mammo RT wo CAD DATE OF EXAM: 09/16/2021 CLINICAL HISTORY: R92.8 abn mammogram. TECHNIQUE: Ultrasound guided core biopsy of right breast x 2. COMPARISON: 09/03/2021 FINDINGS: Preprocedure imaging demonstrates a 1.2 x 0.7 x 1.0 cm heterogeneous mass in the right breast at 8:00 in the region of patient's palpable abnormality and ultrasound-guided biopsy is recommended. The procedure of ultrasound guided core biopsy was explained to the patient. Benefits, alternatives, and risks were discussed. An informed consent was then obtained. The patient was placed in supine positioning for imaging and for the procedure. Site a: Right breast 2:00 The overlying skin was prepped and draped in usual sterile fashion. Lidocaine buffered with bicarbonate was used as anesthetic into the skin and and lidocaine with epinephrine was injected into the subcutaneous tissue up to and past area of concern in the right breast. A davey was made with surgical scalpel. Under ultrasound guidance, a 12-gauge vacuum assisted biopsy gun device was used to obtain 5 core samples. Following this, a wing shape biopsy clip was left in lesion. Site B: Right breast 8:00 The overlying skin was prepped and draped in usual sterile fashion. Lidocaine buffered with bicarbonate was used as anesthetic into the skin and and lidocaine with epinephrine was injected into the subcutaneous tissue up to and past area of concern in the right breast. A davey was made with surgical scalpel. Under ultrasound guidance, a 12-gauge vacuum assisted biopsy gun device was used to obtain 3 core samples. Following this, a ribbon shape biopsy clip was left in lesion. The patient tolerated the procedure well without any immediate complication. The patient was kept in the radiology department for short stay after the procedure and then discharged home in stable condition. IMPRESSION: Successful, uncomplicated ultrasound guided core biopsy of area of concern in the right breast at 2:00 and 8:00, full pathology results to follow. Pathology Results: Malignant A .RIGHT BREAST, 2:00, ULTRASOUND GUIDED CORE BIOPSY: Invasive moderately differentiated ductal carcinoma (Grade 2). See Surgical Pathology Cancer Case Summary. B. RIGHT BREAST, 8:00, ULTRASOUND GUIDED CORE BIOPSY: Scar with fat necrosis, inflammation and dystrophic calcifications. Negative for malignancy. Recommendation Surgical consult of the right breast. SHALOM
== END ==
LOC: RADUSWWP 11:49
PROVIDERS: ATTEND Surgery
DX: R92.8 Other abnormal and inconclusive findings on diagnostic imaging of breast (principal); Z88.6 Allergy status to analgesic agent; Z88.1 Allergy status to other antibiotic agents; Z17.0 Estrogen receptor positive status [ER+]; I21.9 Acute myocardial infarction, unspecified
CPT/HCPCS: 88305; 88342; 88341; 77065; 19083; 19084; A4648; J2001

== ENCOUNTER → 2021-09-23 | Outpatient (CLI) | payer MEDICARE, BC ==
[2021-09-23 14:47] LABS: Basophils # (A) 0.03 X 10*3/uL (0.00-0.10); Basophils % (A) 0.6 %; Eosinophils # (A) 0.13 X 10*3/uL (0.04-0.35); Eosinophils % (A) 2.5 %; HCT 45.5 % (37.2-46.3); HGB 15.2 g/dL (12.0-15.0); Lymphocytes # (A) 2.15 X 10*3/uL (0.90-5.00); Lymphocytes % (A) 41.6 %; MCH 31.6 pg (27.0-32.0); MCHC 33.4 g/dL (32.0-37.0); MCV 94.6 fL (80.0-97.0); Mean Platelet Volume 11.5 fL (9.5-12.2); Monocytes # (A) 0.43 X 10*3/uL (0.20-1.00); Monocytes % (A) 8.3 %; Neutrophils # (A) 2.43 X 10*3/uL (1.80-7.70); Platelet Count 196 X 10*3/uL (140-440); RBC 4.81 X 10*6/uL (4.10-5.20); RDW 11.6 % (11.5-14.5); WBC 5.17 X 10*3/uL (4.50-10.00)
[2021-09-23 16:35] LABS: African American GFR (CKD) 105.4 (60.0-200.0); Albumin 4.7 g/dL (3.8-4.9); Albumin/Globulin Ratio 2.04 (1.60-3.17); Anion Gap 10.3 mmol/L (4.00-12.00); BUN/Creat Ratio 16.57 Ratio (12.00-20.00); Blood Urea Nitrogen 11.6 mg/dL (9.0-27.0); Calcium 9.7 mg/dL (8.7-10.3); Carbon Dioxide 27.7 mmol/L (21.6-31.8); Chol/HDL Ratio 3.04 Ratio; Globulin 2.3 g/dL (1.6-3.3); HDL Cholesterol 62.9 mg/dL (40.00-60.00); LDL Cholesterol,Calculated 111.5 mg/dL (0.0-131.0); Non-African American GFR(CKD) 90.9 (60.0-200.0); Potassium 4.4 mmol/L (3.5-5.5); T4, Free (Free Thyroxine) 1.28 ng/dL (0.800-1.800); Total Bilirubin 0.3 mg/dL (0.30-1.20); Triglycerides 83.2 mg/dL (0.00-149.00); VLDL Calculation 16.64 mg/dL (5.00-40.00)
== END | disposition home or self-care (01) ==
LOC: LABWHC1 08:41
PROVIDERS: ATTEND Internal Medicine Critical Care Medicine
DX: Z00.00 Encounter for general adult medical examination without abnormal findings (principal); F41.9 Anxiety disorder, unspecified; J45.909 Unspecified asthma, uncomplicated; E03.9 Hypothyroidism, unspecified; E55.9 Vitamin D deficiency, unspecified; M26.609 Unspecified temporomandibular joint disorder, unspecified side; F32.9 Major depressive disorder, single episode, unspecified
CPT/HCPCS: 36415; 80053; 80061; 82306; 83036; 84439; 84443; 85025

== ENCOUNTER 2021-10-14 06:49 | Inpatient (IN) | payer MEDICARE, BC ==
[2021-10-10 13:22] VITALS: BMI 25.9
[~2021-10-14 06:49] MED LIST changes: +ACETAMINOPHEN TAB 500 MG TAB PO PRN; +HEPARIN SODIUM,PORCINE/PF 5,000 UNIT/0.5 ML SYRINGE SQ PRN; -LACTATED RINGERS 1,000 ML IV SCH; -MIDAZOLAM 2 MG/2 ML VIAL IV PRN; +Pre Op ABX Message 1 EACH MISC MISCELLANE ONE
[2021-10-14] MEDS ORDERED: ONDANSETRON 4 MG/2 ML VIAL IVP ONE (07:16)
[2021-10-14] MEDS ORDERED: LACTATED RINGERS 1,000 ML IV SCH (07:16)
[2021-10-14] MEDS ORDERED: MIDAZOLAM 2 MG/2 ML VIAL IV PRN (07:16)
[2021-10-14] MEDS ORDERED: DEXAMETHASONE SOD PHOSPHATE 4 MG/ML 1 ML VIAL IV ONE (07:16)
[2021-10-14] MEDS ORDERED: ALPRAZolam 0.5 MG TAB ONE (07:28)
[2021-10-14] MEDS ORDERED: SUCCINYLCHOLINE CHLORIDE 100 MG/5 ML SYR IV ONE (09:33)
[2021-10-14] MEDS ORDERED: MIDAZOLAM 2 MG/2 ML VIAL ONE (09:33)
[2021-10-14] MEDS ORDERED: LIDOCAINE 1% INJ 10MG/ML (20 ML MDV) ONE (09:33)
[2021-10-14] MEDS ORDERED: fentaNYL (PF) 50 MCG/ML 2 ML AMP ONE (09:33)
[2021-10-14] MEDS ORDERED: PROPOFOL 10 MG/ML 20 ML VIAL IV ONE (09:33)
[2021-10-14] MEDS ORDERED: ePHEDrine 50 MG/ML 1 ML AMP ONE (09:33)
[2021-10-14] MEDS ORDERED: METHYLENE BLUE 50 MG/10 ML AMPUL MISCELLANE ONE (09:54)
[2021-10-14] MEDS ORDERED: SODIUM CHLORIDE 0.9% 100 ML with ceFAZolin 2,000 MG IV ONE ×2 (09:55)
[2021-10-14] MEDS ORDERED: LACTATED RINGERS 1,000 ML IV ONE (11:10)
--- NOTE | 2021-10-14 11:40 | NM ---
EXAMINATION TYPE: NM sentinel node injection DATE OF EXAM: 10/14/2021 COMPARISON: 09/16/2021 HISTORY: 65-year-old female with biopsy-proven right breast cancer scheduled for bilateral mastectomi es and right axillary node dissection. TECHNIQUE AND FINDINGS: The procedure of sentinel lymph node injection was explained to the patient. The benefits, alternatives, and risks were discussed. An informed consent was then obtained. Overlying skin is cleaned with sterile alcohol. Following this, 529 uCi [id number] Tilmanocept was inject ed in the upper outer aspect of the right nipple intradermally. The patient tolerated the procedure well without any immediate complication. The patient was kept in the radiology department for short stay after the procedure and then taken to surgery for surgical p rocedure what is presumed intraoperative gamma probe will be used for sentinel lymph node detection. IMPRESSION: Successful right breast radiotracer injection for sentinel node localization as above. We note that t he patient has had a previous reduction mammoplasty.
[2021-10-14] MEDS ORDERED: HYDROmorphone 0.5 MG/0.5 ML SYRINGE IVP PRN (12:35)
[2021-10-14] MEDS ORDERED: NALOXONE 0.4 MG/ML 1 ML VIAL IV PRN (12:35)
--- NOTE | 2021-10-14 12:45 | P.OP ---
Date of Procedure: 10/14/21 Procedure(s) Performed: PREOPERATIVE DIAGNOSIS: Right breast cancer POSTOPERATIVE DIAGNOSIS: Same PROCEDURE: Bilateral simple mastectomy with right breast sentinel lymph node biopsy SURGEON: Wesly EBL: 50 mL ANESTHESIA: General COMPLICATIONS: None OPERATIVE PROCEDURE: Patient was placed on the operating room table in the supine position. 2 mL of methylene blue was injected into the right subareolar space. The breast was then massaged for 5 minutes. The chest wall was then prepped and draped sterilely. Using the skin marker the proposed incision sites were drawn out on the chest wall. The left side was first addressed. The inferior incision was first made. I raised a skin flap from the inferior incision down to the chest wall. I started with the inferior flaps of that I could evaluate how old the skin of the inferior lap handled our dissection given the patient's previous keyhole breast reduction scars. The superior incision was then made immediately superior to the areola. After the flaps were raised superiorly to the chest wall I reinspected our inferior flap and concluded that the inferior flap was ischemic. The superior flap appeared to be able to reach the inframammary scar from the previous surgery without tension. The breast was then removed from the chest wall using electrocautery. Multiple vessels were divided using either electrocautery or the clip marine specialist. The area was irrigated. No bleeding was seen. The skin inferiorly was excised at that point. A drain was placed beneath the flaps of the mastectomy incision. The subcutaneous tissues were then closed using 3-0 Vicryl sutures and the skin was closed using a running 4-0 Monocryl stitch. The right side was then addressed. This time we started with our superior mastectomy incision. Given the outcome on the left I started with our superior incision immediately above the areola and the inferior incision along the previous inframammary scar site. Flaps were then raised superiorly until the chest wall was reached. In the axillary region we used the neoprobe to identify a total of 3 radioactive lymph nodes. None of these were blue in color. These were all clinically negative in appearance. These were sent for permanent sectioning. These were all placed together in the specimen container labeled sentinel lymph nodes. The inferior flap was then made after the inferior incision was created. The breast was removed from the chest wall using electrocautery. Again several vessels were divided using either electrocautery or the clip marine specialist. The area was irrigated. No bleeding was seen. A drain was placed beneath the flaps of the mastectomy incision. The subcutaneous tissues were then closed using 3-0 Vicryl sutures and the skin was closed using a running 4-0 Monocryl stitch. Skin glue tape dressing was used along the entire length of the incision bilaterally. The drains were sutured in place using a 3-0 silk stitch. Sterile dressings were applied. DISPOSITION: Stable to recovery room
[2021-10-14] MEDS: HYDROmorphone 0.5 MG/0.5 ML SYRINGE IVP PRN ×3 (13:02→13:32)
[2021-10-14] MEDS: D5-0.45% NACL WITH KCL 20MEQ/L 1,000 ML IV SCH (16:42)
[2021-10-14] MEDS: ONDANSETRON 4 MG/2 ML VIAL IVP PRN (16:47)
[2021-10-14] MEDS: HEPARIN SODIUM,PORCINE/PF 5,000 UNIT/0.5 ML SYRINGE SQ SCH (16:48)
[2021-10-14] MEDS ORDERED: METOCLOPRAMIDE 5 MG/ML 2 ML VIAL IVP PRN (18:24)
[2021-10-14] MEDS: DOCUSATE 100 MG CAP PO SCH (20:31)
[2021-10-15] MEDS: HEPARIN SODIUM,PORCINE/PF 5,000 UNIT/0.5 ML SYRINGE SQ SCH ×3 (00:09→16:35)
[2021-10-15] MEDS: HYDROcodone/APAP 5-325MG 1 EACH TAB PO PRN ×3 (00:22→11:57)
[2021-10-15] MEDS: D5-0.45% NACL WITH KCL 20MEQ/L 1,000 ML IV SCH ×2 (01:23→11:57)
--- NOTE | 2021-10-15 05:32 | P.CONS ---
History of Present Illness - Reason for Consult Consult date: 10/14/21 medical management post op Requesting physician: Jose Alberto Jarrell - Chief Complaint Breast cancer - History of Present Illness 65-year-old female with recent diagnosis of breast cancer invasive ductal carcinoma Patient presented for scheduled bilateral simple mastectomy with right sentinel lymph nodes biopsy, patient tolerated procedure well, denies any immediate postoperative observed complications, pain is well tolerated, patient tolerating by mouth intake She denies any palpitations fevers chills abdominal pain difficult urination She had some nausea earlier improved with medications Review of Systems Pertinent positives as noted in HPI. All other systems were reviewed and are negative Past Medical History Past Medical History: Asthma, Cancer, Osteoarthritis (OA), Thyroid Disorder Additional Past Medical History / Comment(s): Chronic back problems, migraine headaches and TMJ. Hypothyroid. 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 She has no history of STDs. BRCA neg (1 &2). BREAST CANCER, SISTER BREAST CANCER, MIGRAINE HEADACHE, History of Any Multi-Drug Resistant Organisms: None Reported Past Surgical History: Breast Surgery, Hysterectomy, Tonsillectomy Additional Past Surgical History / Comment(s): Colonoscopy . bilateral breast reduction 1984; Right breast core bx (benign 2007), Hematoma in right breast . Right breast stereotactic bx (benign) 06/09/19. Past Anesthesia/Blood Transfusion Reactions: No Reported Reaction Additional Past Anesthesia/Blood Transfusion Reaction / Comm: No blood transfusion to date Past Psychological History: No Psychological Hx Reported Smoking Status: Never smoker Past Alcohol Use History: Occasional Additional Past Alcohol Use History / Comment(s): smoked socially as a teenager Past Drug Use History: None Reported - Past Family History Mother Family Medical History: AFIB, Cancer, Congestive Heart Failure (CHF), Hypertension Additional Family Medical History / Comment(s): Renal cancer. Maternal grandmother and maternal aunt had breast cancer. Grandfather had prostate cancer. Father Family Medical History: Myocardial Infarction (DC) Sister(s) Family Medical History: Cancer Additional Family Medical History / Comment(s): Breast cancer. This sister's daughter had breast cancer at age 30. Another daughter of hers had the bilateral mastectomy for atypical cells. Medications and Allergies Home Medications Medication Instructions Recorded Confirmed Type Calcium Carbonate [Calcium] 600 mg PO DAILY 04/27/18 10/10/21 History Levothyroxine Sodium [Synthroid] 75 mcg PO QAM 04/27/18 10/10/21 History Cholecalciferol [Vitamin D3] 5,000 unit PO DAILY 05/04/18 10/10/21 History Magnesium 500 mg PO DAILY 05/03/19 10/10/21 History Ascorbic Acid [Vitamin C] 1,000 mg PO DAILY 07/24/20 10/10/21 History Turmeric Root Extract [Turmeric] 500 mg PO DAILY 07/24/20 10/10/21 History diphenhydrAMINE HCL [Benadryl] 0.5 tab PO 10/14/21 History Allergies Allergy/AdvReac Type Severity Reaction Status Date / Time levofloxacin [From [facility]] Allergy Swelling Verified 10/14/21 14:45 NSAIDS (Non-Steroidal AdvReac "RINGING Verified 10/14/21 14:45 Anti-Inflamma IN EARS AND BRUISES Physical Exam Vitals: Vital Signs Temp Pulse Resp BP Pulse Ox 10/15/21 02:00 98.2 F 73 18 103/64 10/14/21 18:15 91 16 108/69 99 10/14/21 17:15 79 16 115/71 99 10/14/21 15:45 91 16 108/69 99 10/14/21 15:15 90 18 112/70 98 10/14/21 15:00 92 18 130/74 100 10/14/21 14:45 97 18 132/86 100 10/14/21 14:30 97.3 F L 94 18 124/67 100 10/14/21 14:15 82 16 131/65 96 10/14/21 14:00 87 16 137/65 96 10/14/21 13:45 86 16 146/69 99 10/14/21 13:30 92 16 146/63 99 10/14/21 13:15 89 16 149/70 99 10/14/21 13:00 96 16 144/68 99 10/14/21 12:45 100 16 143/66 99 10/14/21 12:40 97.7 F 101 H 16 140/66 99 10/14/21 07:37 97.1 F L 64 20 125/60 100 Intake and Output 10/14/21 10/14/21 10/15/21 14:59 22:59 06:59 Intake Total 1700 Output Total 95 540 240 Balance 1605 -540 -240 Intake: IV 1700 Output: Drainage 20 40 40 LEFT DRAIN 20 10 RIGHT DRAIN 20 20 30 Urine 500 200 Estimated Blood Loss 75 Other: # Voids 3 Weight 65.1 kg Constitutional: No acute distress, conversant, pleasant Eyes: Anicteric sclerae, moist conjunctiva, Pupils equal round reactive to light ENMT: NC/AT Oropharynx clear, no erythema, or exudates Neck: Supple, FROM, no masses, or JVD No carotid bruits No thyromegaly Lungs: Clear to auscultation Clear to percussion Normal respiratory effort, no accessory muscle use Bilateral drains in place at surgical site of the breast Cardiovascular: Heart regular in rate and rhythm, No murmurs, gallops, or rubs No peripheral edema Abdominal: Soft Nontender, no guarding, rebound or rigidity Abdomen moving with respiration Normoactive bowel sounds No hepatomegaly, No splenomegaly No palpable mass No abdominal wall hernia noted Skin: Normal temperature, tone, texture, turgor No induration No subcutaneous nodules No rash, lesions No ulcers Extremities: No digital cyanosis No clubbing Pedal pulses intact and symmetrical Radial pulses intact and symmetrical No calf tenderness Psychiatric: Alert and oriented to person, place and time Appropriate affect fair judgement Neuro Muscles Strength 4/5 over bilateral lower extremities limited exam over the bilateral upper extremity due to recent surgery of the breast however strength is 4 out of 5 in the distal muscle groups of the upper extremities Sensation to light touch grossly present throughout Cranial nerves II-XII grossly intact No focal sensory deficits Lymphatics: no palpable cervical or supraclavicular , or inguinal lymph nodes Assessment and Plan Assessment: Invasive ductal carcinoma of the breast Status post Bilateral simple mastectomy with right breast sentinel lymph node biopsy postoperative day 0 Continue care per general surgery primary team recommendations Drain care Intermittent asthma When necessary hypothyroidism Resume levothyroxine Follow-up CBC and CMP Thank you for allowing us to participate in the care of this patient. Do not hesitate to contact us with questions. Someone can be reached from the [facility] hospitalist group at all hours of the day at [phone].
[2021-10-15] MEDS ORDERED: IPRATROPIUM-ALBUTEROL 3 ML NEB INHALATION PRN (05:33)
[2021-10-15] MEDS: LEVOTHYROXINE 75 MCG TAB PO SCH (07:00)
[2021-10-15] MEDS: DOCUSATE 100 MG CAP PO SCH ×2 (07:37→20:41)
[2021-10-15] MEDS: PANTOPRAZOLE 40 MG/10 ML VIAL IV SCH (07:37)
[2021-10-15 08:16] LABS: Basophils % (A) 0 %; Eosinophils % (A) 0 %; HCT 36.5 % (34.0-46.0); HGB 12.6 gm/dL (11.4-16.0); Lymphocytes % (A) 20 %; MCH 33.4 pg (25.0-35.0); MCHC 34.4 g/dL (31.0-37.0); MCV 96.9 fL (80.0-100.0); Mean Platelet Volume 8.5; Monocytes # (A) 0.6 k/uL (0-1.0); Monocytes % (A) 6 %; Neutrophils # (A) 7.5 k/uL (1.3-7.7); Neutrophils % (A) 73 %; Platelet Count 166 k/uL (150-450); RBC 3.76 m/uL (3.80-5.40); WBC 10.2 k/uL (3.8-10.6)
[2021-10-15 08:39] LABS: ALT 14 U/L (4-34); AST 19 U/L (14-36); African American GFR (CKD) >90 (>60 ml/min/1.73 sqM); Albumin 3.4 g/dL (3.5-5.0); Alkaline Phosphatase 54 U/L (38-126); Anion Gap 4 mmol/L; Blood Urea Nitrogen 10 mg/dL (7-17); Calcium 9.2 mg/dL (8.4-10.2); Carbon Dioxide 29 mmol/L (22-30); Chloride 102 mmol/L (98-107); Glucose 109 mg/dL (74-99); Non-African American GFR(CKD) >90 (>60 ml/min/1.73 sqM); Potassium 4.2 mmol/L (3.5-5.1); Sodium 135 mmol/L (137-145); Total Bilirubin 0.4 mg/dL (0.2-1.3); Total Protein 5.8 g/dL (6.3-8.2)
[2021-10-15] MEDS: ONDANSETRON 4 MG/2 ML VIAL IVP PRN ×2 (10:15→16:35)
--- NOTE | 2021-10-15 11:16 | P.PN ---
<Denisse Mcnair - Last Filed: 10/15/21 11:02> Subjective Progress Note Date: 10/15/21 CHIEF COMPLAINT: Right breast cancer HISTORY OF PRESENT ILLNESS: This is a 65-year-old female with right breast cancer status post bilateral simple mastectomy with right breast sentinel lymph node biopsy. Patient does complain of pain and nausea. She is currently on a clear liquid diet. She is having flatus. She has been up and ambulating. Afebrile. WBC 10.2 Hgb 12.6. NATHANIEL drain with serosanguineous fluid 30 mL output from the right NATHANIEL drain and 50 mL from the left drain PHYSICAL EXAM: VITAL SIGNS: Reviewed. GENERAL: Well-developed in no acute distress. HEENT: No sclera icterus. Extraocular movements grossly intact. Moist buccal mucosa. Head is atraumatic, normocephalic. ABDOMEN: Soft. Nondistended. Nontender. NEUROLOGIC: Alert and oriented. Cranial nerves II through XII grossly intact. Breast: Patient's dressing is clean dry and intact. She has binder in place ASSESSMENT: 1. Right breast cancer status post bilateral simple mastectomy with right breast sentinel lymph node biopsy PLAN: -Advance diet to regular -Continue pain medication as needed -Continue antiemetics as needed -Encourage patient to ambulate -Encourage patient to use incentive spirometer Physician Clinical Medical Transcriptionist note has been reviewed by physician. Signing provider agrees with the documented findings, assessment, and plan of care. Objective - Vital Signs Vital signs: Vital Signs Temp 98.5 F 10/15/21 08:15 Pulse 72 10/15/21 08:15 Resp 16 10/15/21 08:15 BP 118/68 10/15/21 08:15 Pulse Ox 97 10/15/21 08:15 Intake & Output 10/14/21 10/15/21 10/15/21 18:59 06:59 18:59 Intake Total 1700 540 Output Total 135 740 80 Balance 1565 -740 460 Weight 65.1 kg Intake: IV 1700 Oral 540 Output: Drainage 60 40 LEFT DRAIN 20 10 RIGHT DRAIN 40 30 Urine 700 80 Estimated Blood Loss 75 Other: # Voids 3 - Labs CBC & Chem 7: 10/15/21 07:30 10/15/21 07:30 Labs: Abnormal Lab Results - Last 24 Hours (Table) 10/15/21 10/15/21 Range/Units 07:30 07:30 RBC 3.76 L (3.80-5.40) m/uL Sodium 135 L (137-145) mmol/L Glucose 109 H (74-99) mg/dL Total Protein 5.8 L (6.3-8.2) g/dL Albumin 3.4 L (3.5-5.0) g/dL <Jose Alberto Jarrell - Last Filed: 10/15/21 15:05> Subjective As above. Patient was nauseated last night. Better today. Dressings removed. Incisions are clean and dry without significant ecchymosis, no flap ischemia. There is a small 5 x 5 x 2cm area of swelling medial aspect right chest wall. Suspect localized hematoma. Mild tenderness there. Continue monitor incision sites. Probably discharge tomorrow. Objective - Vital Signs Vital signs: Vital Signs Temp 98.3 F 10/15/21 14:10 Pulse 75 10/15/21 14:10 Resp 16 10/15/21 14:10 BP 102/65 10/15/21 14:10 Pulse Ox 100 10/15/21 14:10 Intake & Output 10/14/21 10/15/21 10/15/21 18:59 06:59 18:59 Intake Total 1700 540 Output Total 135 740 125 Balance 1565 -740 415 Weight 65.1 kg Intake: IV 1700 Oral 540 Output: Drainage 60 40 45 LEFT DRAIN 20 10 35 RIGHT DRAIN 40 30 10 Urine 700 80 Estimated Blood Loss 75 Other: # Voids 3 - Labs CBC & Chem 7: 10/15/21 07:30 10/15/21 07:30 Labs: Abnormal Lab Results - Last 24 Hours (Table) 10/15/21 10/15/21 Range/Units 07:30 07:30 RBC 3.76 L (3.80-5.40) m/uL Sodium 135 L (137-145) mmol/L Glucose 109 H (74-99) mg/dL Total Protein 5.8 L (6.3-8.2) g/dL Albumin 3.4 L (3.5-5.0) g/dL
[2021-10-15] MEDS ORDERED: ONDANSETRON 4 MG TAB PO PRN (18:00)
--- NOTE | 2021-10-15 18:06 | P.PN ---
Subjective Progress Note Date: 10/15/21 Hospital course: Patient is a 65-year-old female with recent diagnosis of breast cancer invasive ductal carcinoma. She is currently admitted under Gen. surgery team and underwent bilateral simple mastectomy with right breast sentinel lymph node biopsies completed by Dr. Jarrell on 10/14/21. We have been consulted to provide continued medical management throughout patient's hospitalization. Physical exam: Patient seen and fully evaluated at the bedside. She reports continued postoperative nausea, denies any further episodes of vomiting but states she becomes very nauseous with minimal movement such as sitting up or walking to the bathroom. Patient placed on oral Zofran 4 mg as needed for nausea with breakthr ough Reglan 10 mg IVP as needed. Patient has been tolerating clear liquid diet this morning. She reports pain is currently controlled with current pain medication regimen. She denies having any chest pain, palpitations, shortness of breath, or any other complaints at this time. Postoperative dressing and binder in place. Morning labs unremarkable and vital signs stable. Vital signs reviewed and stable. General: Nontoxic, no distress and appears stated age. Derm: Skin warm and dry, normal coloration for ethnicity. Head: Atraumatic, normocephalic and symmetric. Eyes: EOMs intact, no lid lag, and anicteric sclera Mouth: no lip lesions, mucus membranes moist Cardiovascular: regular rate and rhythm with normal S1S2, no murmur, positive posterior tibial pulses bilaterally, and cap refill < 2 seconds. Lungs: Respirations even, regular, and unlabored on room air. Lungs CTA bilatera lly, no rhonchi, no rales, no wheezing, and no accessory muscle usage. Abdominal: soft, nontender to palpation, no guarding, no appreciable organomegaly Ext: ROM intact. No gross muscle atrophy, no edema, no contractures Neuro: Speech clear, face symmetrical and CN II-XII grossly intact with no noted focal neuro deficits Psych: Alert and oriented to person, place, time, and situation. Appropriate and pleasant affect. Assessment and Plan of Care: Status post bilateral simple mastectomy with right breast sentinel lymph node biopsies completed by Dr. Pang on 10/14/21 secondary to Invasive ductal carcinoma of the breast -Patient is postoperative day 1 -Wound care, DVT prophylaxis, pain management, and dressing changes per primary admitting general surgery team. -Patient currently on DVT prophylaxis with heparin. -Encourage use of incentive spirometer 10-15 times hourly while awake. -Encourage use of splinting and deep breathing exercises. -Symptomatic care and pain management. Postoperative nausea -Continue oral Zofran 4 mg every 6 hours as needed along with Reglan 10 mg IVP for breakthrough episodes of nausea/vomiting. -Advance diet as patient tolerates. Intermittent asthma -Encourage use of incentive spirometer 10-15 times hourly while awake. -Duo nebs as needed for wheezing and/or shortness of breath. Hypothyroidism Continue daily medication regimen with level thyroxine 75 g each morning. Thank you for allowing us to participate in the care of this pleasant patient. Do not hesitate to contact us with questions. Someone can be reached from the [facility] [place] hospitalist group all hours of the day at [phone] or via [employer].. Objective - Vital Signs Vital signs: Vital Signs Temp 98.2 F 10/15/21 02:00 Pulse 73 10/15/21 02:00 Resp 18 10/15/21 02:00 BP 103/64 10/15/21 02:00 Pulse Ox 99 10/14/21 18:15 Intake & Output 10/14/21 10/15/21 10/15/21 18:59 06:59 18:59 Intake Total 1700 Output Total 135 740 80 Balance 1565 -740 -80 Weight 65.1 kg Intake: IV 1700 Output: Drainage 60 40 LEFT DRAIN 20 10 RIGHT DRAIN 40 30 Urine 700 80 Estimated Blood Loss 75 Other: # Voids 3 - Labs CBC & Chem 7: 10/15/21 07:30 10/15/21 07:30 Labs: Abnormal Lab Results - Last 24 Hours (Table) 10/15/21 Range/Units 07:30 RBC 3.76 L (3.80-5.40) m/uL
[2021-10-15] MEDS: ACETAMINOPHEN TAB 325 MG TAB PO PRN (20:58)
[2021-10-16] MEDS: HEPARIN SODIUM,PORCINE/PF 5,000 UNIT/0.5 ML SYRINGE SQ SCH ×4 (03:10→23:45)
[2021-10-16] MEDS: ACETAMINOPHEN TAB 325 MG TAB PO PRN (03:37)
[2021-10-16] MEDS: D5-0.45% NACL WITH KCL 20MEQ/L 1,000 ML IV SCH ×3 (07:56→12:35)
[2021-10-16] MEDS: LEVOTHYROXINE 75 MCG TAB PO SCH (07:57)
[2021-10-16] MEDS: DOCUSATE 100 MG CAP PO SCH ×2 (08:04→21:41)
[2021-10-16] MEDS ORDERED: SODIUM CHLORIDE 0.9% 1,000 ML IV ONE (08:10)
[2021-10-16 08:27] LABS: Basophils % (A) 0 %; Eosinophils # (A) 0.1 k/uL (0-0.7); Eosinophils % (A) 1 %; HCT 34.8 % (34.0-46.0); HGB 12.1 gm/dL (11.4-16.0); Lymphocytes # (A) 2.2 k/uL (1.0-4.8); Lymphocytes % (A) 23 %; MCH 33.7 pg (25.0-35.0); MCHC 34.7 g/dL (31.0-37.0); MCV 97.1 fL (80.0-100.0); Mean Platelet Volume 8.3; Monocytes # (A) 0.4 k/uL (0-1.0); Monocytes % (A) 4 %; Neutrophils % (A) 71 %; Platelet Count 182 k/uL (150-450); RBC 3.58 m/uL (3.80-5.40); WBC 9.8 k/uL (3.8-10.6)
[2021-10-16] MEDS: PANTOPRAZOLE 40 MG/10 ML VIAL IV SCH (08:30)
--- NOTE | 2021-10-16 11:57 | P.PN ---
Subjective Progress Note Date: 10/16/21 Vita is a 65-year-old white female status post bilateral mastectomy for invasive ductal carcinoma of the right breast on [id number]. Postprocedure the patient did well but was noted to have some increased NATHANIEL output from the right side. Hemoglobin remained stable at 12.1 from 12.6. The patient did develop some swelling at the right chest wall which the nurse states has been stable since earlier this morning. Objective - Vital Signs Vital signs: Vital Signs Temp 98.6 F 10/16/21 07:40 Pulse 67 10/16/21 07:40 Resp 17 10/16/21 07:40 BP 103/67 10/16/21 08:46 Pulse Ox 99 10/16/21 07:40 Intake & Output 10/15/21 10/16/21 10/16/21 18:59 06:59 18:59 Intake Total 3140 Output Total 160 285 30 Balance 2980 -285 -30 Intake: Intake, IV Titration 1100 Amount D5-0.45% NaCl with KCl 1100 20Meq/l 1,000 ml @ 100 mls/hr IV .Q10H LELO Rx#: [id number] Oral 2040 Output: Drainage 80 285 30 LEFT DRAIN 10 10 20 RIGHT DRAIN 70 275 10 Urine 80 Other: # Voids 5 1 - Constitutional General appearance: Present: cooperative - EENT Eyes: Present: EOMI ENT: Present: hearing grossly normal - Neck Neck: Present: normal ROM - Respiratory Respiratory: bilateral: CTA - Cardiovascular Heart sounds: normal: S1, S2 - Integumentary Integumentary Comment(s): Incisions clean and dry bilateral Right chest wall diffuse fullness consistent with hematoma - Psychiatric Psychiatric: Present: A&O x's 3, appropriate affect, intact judgment & insight - Labs CBC & Chem 7: 10/16/21 08:11 10/15/21 07:30 Labs: Abnormal Lab Results - Last 24 Hours (Table) 10/16/21 Range/Units 08:11 RBC 3.58 L (3.80-5.40) m/uL Assessment and Plan Assessment: Impression: 1. Patient is a 65-year-old white female status post bilateral mastectomy with right sentinel node biopsy for invasive ductal carcinoma 2. Recent increased NATHANIEL output on the right side serosanguineous in nature with evident right diffuse hematoma/questionably stable Plan: 1. Serial CBCs 2. Close surveillance 3. If the area of hematoma increases or her hemoglobin decreases we will consider evacuation in the operating room. Risks and benefits of operative evacuation were discussed with the patient. She understands and at this time we will continue to watch closely.
[2021-10-16 12:11] LABS: Basophils % (A) 0 %; Eosinophils # (A) 0.1 k/uL (0-0.7); Eosinophils % (A) 1 %; HCT 34.2 % (34.0-46.0); HGB 11.8 gm/dL (11.4-16.0); Lymphocytes # (A) 2.4 k/uL (1.0-4.8); Lymphocytes % (A) 28 %; MCH 33.3 pg (25.0-35.0); MCHC 34.5 g/dL (31.0-37.0); MCV 96.5 fL (80.0-100.0); Mean Platelet Volume 8.3; Monocytes # (A) 0.3 k/uL (0-1.0); Monocytes % (A) 4 %; Neutrophils # (A) 5.8 k/uL (1.3-7.7); Neutrophils % (A) 67 %; Platelet Count 179 k/uL (150-450); RBC 3.54 m/uL (3.80-5.40); RDW 12.7 % (11.5-15.5); WBC 8.7 k/uL (3.8-10.6)
[2021-10-16 12:19] LABS: INR 1.1 (<1.2); Prothrombin Time 11.2 sec (9.0-12.0)
--- NOTE | 2021-10-16 12:43 | P.PN ---
Subjective Progress Note Date: 10/16/21 CHIEF COMPLAINT: Right breast cancer HISTORY OF PRESENT ILLNESS: Patient seen and examined this morning. This is a 65-year-old female with right breast cancer status post bilateral simple mastectomy with right breast sentinel lymph node biopsy. Patient reports that her pain and nausea have improved greatly. Patient's right breast medial hematoma is softer and decreased in size. She has more swelling and bruising noted laterally on the breast as well as along the incision site. No drainage from the incision. She did have sanguinous output of 100 mL through the right NATHANIEL drains to the night and about 10 mL this morning and only about 10 mL out of the left drain. Patient's hemoglobin stable at 12.1 this morning. Patient has been seen by Dr. Obie Lr who is covering for Dr. Jarrell. Afebrile. PHYSICAL EXAM: VITAL SIGNS: Reviewed. GENERAL: Well-developed in no acute distress. HEENT: No sclera icterus. Extraocular movements grossly intact. Moist buccal mucosa. Head is atraumatic, normocephalic. ABDOMEN: Soft. Nondistended. Nontender. NEUROLOGIC: Alert and oriented. Cranial nerves II through XII grossly intact. Breast: Increased swelling Right breast. The area of hematoma at the medial aspect of the right breast is softer and smaller in size. There is some bruising noted along the incision. No drainage noted from incision site. ASSESSMENT: 1. Right breast cancer status post bilateral simple mastectomy with right breast sentinel lymph node biopsy 2. Right breast hematoma PLAN: -Patient currently nothing by mouth -Patient being followed by Dr. Obie Lr and will await her further recommendations -Continue to monitor hemoglobin -Continue to monitor NATHANIEL drain output -Continue pain medication as needed -Continue antiemetics as needed -Encourage patient to ambulate -Encourage patient to use incentive spirometer Physician Grade Tamper note has been reviewed by physician. Signing provider agrees with the documented findings, assessment, and plan of care. Objective - Vital Signs Vital signs: Vital Signs Temp 98.6 F 10/16/21 07:40 Pulse 67 10/16/21 07:40 Resp 17 10/16/21 07:40 BP 103/67 10/16/21 08:46 Pulse Ox 99 10/16/21 07:40 Intake & Output 10/15/21 10/16/21 10/16/21 18:59 06:59 18:59 Intake Total 3140 Output Total 160 285 30 Balance 2980 -285 -30 Intake: Intake, IV Titration 1100 Amount D5-0.45% NaCl with KCl 1100 20Meq/l 1,000 ml @ 100 mls/hr IV .Q10H LELO Rx#: [id number] Oral 0 Output: Drainage 80 285 30 LEFT DRAIN 10 10 20 RIGHT DRAIN 70 275 10 Urine 80 Other: # Voids 5 1 - Labs CBC & Chem 7: 10/16/21 11:56 10/15/21 07:30 Labs: Abnormal Lab Results - Last 24 Hours (Table) 10/16/21 10/16/21 Range/Units 08:11 11:56 RBC 3.58 L 3.54 L (3.80-5.40) m/uL
[2021-10-16] MEDS ORDERED: ONDANSETRON 4 MG/2 ML VIAL IVP PRN ×2 (13:12→16:42)
[2021-10-16] MEDS: HYDROcodone/APAP 5-325MG 1 EACH TAB PO PRN ×2 (13:13→23:51)
--- NOTE | 2021-10-16 13:20 | P.PN ---
Subjective Progress Note Date: 10/16/21 Hospital course: Patient is a 65-year-old female with recent diagnosis of breast cancer invasive ductal carcinoma. She is currently admitted under Gen. surgery team and underwent bilateral simple mastectomy with right breast sentinel lymph node biopsies completed by Dr. Jarrell on 10/14/21. We have been consulted to provide continued medical management throughout patient's hospitalization. Physical exam: Received a page this morning with reports that patient had 265 mL of serosanguineous fluid from right drain secondary to concerns of possible hematoma. RN reports patient hypotensive with blood pressure 90/60. Order placed for stat CBC and 1 L bolus of fluid. Went to bedside to assess patient, patient resting comfortably sitting up in bed. She reports pain is controlled. Patient reports initially she had small golf ball sized area of swelling to right chest wall which then continued to swell to the size of a hockey puck, however this has resolved and area is now soft. Surgical incisions well approx imated with no signs of erythema, edema, or drainage. Patient states postsurgical pain is controlled at this time and reports anti-emetic regimen has been controlling her nausea. CBC resulted revealing stable hemoglobin at 11.8. Patient denies experiencing any headache, lightheadedness, dizziness, chest pain, palpitations, shortness of breath, or any other complaints at this time. General surgery team was notified of NATHANIEL drain output and to assess. Vital signs reviewed and stable. General: Nontoxic, no distress and appears stated age. Derm: Skin warm and dry, normal coloration for ethnicity. Head: Atraumatic, normocephalic and symmetric. Eyes: EOMs intact, no lid lag, and anicteric sclera Mouth: no lip lesions, mucus membranes moist Cardiovascular: regular rate and rhythm with normal S1S2, no murmur, positive posterior tibial pulses bilaterally, and cap refill < 2 seconds. Lungs: Respirations even, regular, and unlabored on room air. Lungs CTA bilaterally, no rhonchi, no rales, no wheezing, and no accessory muscle usage. Abdominal: soft, nontender to palpation, no guarding, no appreciable organomegaly Ext: ROM intact. No gross muscle atrophy, no edema, no contractures Neuro: Speech clear, face symmetrical and CN II-XII grossly intact with no noted focal neuro deficits Psych: Alert and oriented to person, place, time, and situation. Appropriate and pleasant affect. Assessment and Plan of Care: Status post bilateral simple mastectomy with right breast sentinel lymph node biopsies completed by Dr. Pang on 10/14/21 secondary to Invasive ductal carcinoma of the breast -Patient is postoperative day 2 -Wound care, DVT prophylaxis, pain management, and dressing changes per primary admitting general surgery team. -Patient currently on DVT prophylaxis with heparin. -Encourage use of incentive spirometer 10-15 times hourly while awake. -Encourage use of splinting and deep breathing exercises. -Symptomatic care and pain management. Postoperative nausea -Continue oral Zofran 4 mg every 6 hours as needed along with Reglan 10 mg IVP f or breakthrough episodes of nausea/vomiting. -Advance diet as patient tolerates. Intermittent asthma -Encourage use of incentive spirometer 10-15 times hourly while awake. -Duo nebs as needed for wheezing and/or shortness of breath. Hypothyroidism Continue daily medication regimen with level thyroxine 75 g each morning. Thank you for allowing us to participate in the care of this pleasant patient. Do not hesitate to contact us with questions. Someone can be reached from the [facility] hospitalist group all hours of the day at [phone] or via [employer]. Objective - Vital Signs Vital signs: Vital Signs Temp 99.0 F 10/16/21 02:58 Pulse 67 10/16/21 04:00 Resp 18 10/16/21 04:00 BP 98/59 10/16/21 04:00 Pulse Ox 97 10/16/21 02:58 Intake & Output 10/15/21 10/16/21 10/16/21 18:59 06:59 18:59 Intake Total 3140 Output Total 160 285 Balance 2980 -285 Intake: Intake, IV Titration 1100 Amount D5-0.45% NaCl with KCl 1100 20Meq/l 1,000 ml @ 100 mls/hr IV .Q10H LELO Rx#: [id number] Oral 2040 Output: Drainage 80 285 LEFT DRAIN 10 10 RIGHT DRAIN 70 275 Urine 80 Other: # Voids 5 1 - Labs CBC & Chem 7: 10/16/21 11:56 10/15/21 07:30 Labs: Abnormal Lab Results - Last 24 Hours (Table) 10/15/21 10/15/21 Range/Units 07:30 07:30 RBC 3.76 L (3.80-5.40) m/uL Sodium 135 L (137-145) mmol/L Glucose 109 H (74-99) mg/dL Total Protein 5.8 L (6.3-8.2) g/dL Albumin 3.4 L (3.5-5.0) g/dL
[2021-10-16] MEDS ORDERED: IV FLUID CONTINUATION 1,000 ML IV ONE (14:19)
[2021-10-16] MEDS ORDERED: HYDROmorphone (PF) 1 MG/ML ONE (14:45)
[2021-10-16] MEDS ORDERED: ePHEDrine 50 MG/ML 1 ML AMP ONE (14:45)
[2021-10-16] MEDS ORDERED: PROPOFOL 10 MG/ML 20 ML VIAL IV ONE (14:45)
[2021-10-16] MEDS ORDERED: fentaNYL (PF) 50 MCG/ML 2 ML AMP ONE (14:45)
[2021-10-16] MEDS ORDERED: PHENYLEPHRINE-0.9% NACL SYG 1,000 MCG/10 ML SYRINGE ONE (14:45)
[2021-10-16] MEDS ORDERED: MIDAZOLAM 2 MG/2 ML VIAL ONE (14:45)
[2021-10-16] MEDS ORDERED: LIDOCAINE 1% INJ 10MG/ML (20 ML MDV) ONE (14:45)
[2021-10-16] MEDS ORDERED: HEPARIN SODIUM,PORCINE 5,000 UNIT/ML 1 ML VIAL ONE (14:45)
[2021-10-16] MEDS ORDERED: LACTATED RINGERS 1,000 ML IV ONE ×3 (14:50→16:29)
--- NOTE | 2021-10-16 15:12 | P.PN ---
Progress Note - Text Progress Note Date: 10/16/21 I received a call that the patient's right-sided hematoma was increasing in size. Additionally she had increased discomfort at that site. As per our conversation earlier we decided to do an evacuation of the hematoma. I discussed this with the patient and her . They understood risks and benefits and wishes to proceed.
[2021-10-16] MEDS ORDERED: SODIUM CHLORIDE 0.9% 100 ML with ceFAZolin 2,000 MG IV ONE ×2 (15:20)
--- NOTE | 2021-10-16 16:41 | P.OP ---
Date of Procedure: 10/16/21 Preoperative Diagnosis: Expanding hematoma right chest wall Postoperative Diagnosis: Same Procedure(s) Performed: Evacuation expanding hematoma, irrigation of wound, oversewing anterior chest wall vessel, revision of incision Anesthesia: SEBASTIAN Surgeon: Belinda Little Estimated Blood Loss (ml): 10 IV fluids (ml): 1,000 Pathology: other (Hematoma/skin incision incision) Condition: stable Disposition: same day Indications for Procedure: Expanding symptomatic hematoma right chest wall Operative Findings: Hematoma/small bleeding vessel anterior chest wall Description of Procedure: The patient is a 65-year-old white female status post bilateral mastectomy who is postoperative developed increasing swelling and discomfort/an expanding hematoma of the right chest wall. Initial observation was attempted however the area was increasing in size and uncomfortable for the patient. Therefore we opted for surgical evacuation of the hematoma. This can benefits were discussed with the patient and her and they wish to proceed. The patient was taken to the operative suite and following sedation the right chest wall was prepped and draped in a sterile fashion. The incisions from the prior mastectomy were opened. Approximately 200 mL of hematoma was evacuated. A anterior muscular vessel was identified which was noted to be bleeding. This was suture ligated. Pulse irrigation of the wound was performed. Several other small areas of oozing were identified and were cauterized. No other active bleeding vessels were identified. Surgicel in powder form was placed. The wound was carefully evaluated. Approximately 2cc width on the anterior incision was removed to tighten the mastectomy pocket. After we assured that hemostasis was attained 2 NATHANIEL drains were placed. One was placed in the axillary area and the second in the area of the chest wall. The NATHANIEL drains were secured using 3-0 nylon suture. The subcutaneous tissues were closed using 3-0 Vicryl stay suture. The skin was approximated using 4-0 Monocryl. A sterile exofin fusion tape ws placed. Sterile dressing was applied. The patient tolerated the procedure in stable condition. All instrument and sponge counts were correct at the end of the case.
[2021-10-16] MEDS ORDERED: NALOXONE 0.4 MG/ML 1 ML VIAL IV PRN (16:42)
[2021-10-16] MEDS ORDERED: HYDROmorphone 1 MG/ML 1 ML SYRINGE IVP PRN (16:42)
[2021-10-16] MEDS ORDERED: ONDANSETRON 4 MG/2 ML VIAL IVP ONE (17:00)
[2021-10-16] MEDS ORDERED: HYDROmorphone 0.5 MG/0.5 ML SYRINGE IVP ONE (17:34)
[2021-10-16] MEDS ORDERED: SCOPOLAMINE 1.5MG/72HR PATCH TRANSDERM ONE (18:05)
[2021-10-16] MEDS: LACTATED RINGERS 1,000 ML IV SCH (18:08)
[2021-10-16 21:39] LABS: Basophils % (A) 0 %; Eosinophils % (A) 0 %; HCT 28.2 % (34.0-46.0); Lymphocytes # (A) 0.9 k/uL (1.0-4.8); Lymphocytes % (A) 13 %; MCH 32.5 pg (25.0-35.0); MCHC 31.7 g/dL (31.0-37.0); Macrocytosis Slight; Mean Platelet Volume 8.4; Monocytes # (A) 0.3 k/uL (0-1.0); Monocytes % (A) 4 %; Neutrophils # (A) 5.5 k/uL (1.3-7.7); Neutrophils % (A) 82 %; Platelet Count 140 k/uL (150-450); RBC 2.75 m/uL (3.80-5.40); RDW 12.5 % (11.5-15.5); WBC 6.7 k/uL (3.8-10.6)
[2021-10-16 21:57] LABS: HGB 8.9 gm/dL (11.4-16.0); MCV 102.6 fL (80.0-100.0)
[2021-10-16] MEDS: DEXTROSE 5%-0.45% NACL 1,000 ML IV SCH (23:38)
[2021-10-17] MEDS: LEVOTHYROXINE 75 MCG TAB PO SCH (06:18)
[2021-10-17 06:26] LABS: Basophils % (A) 0 %; Eosinophils % (A) 0 %; HCT 26.9 % (34.0-46.0); HGB 8.9 gm/dL (11.4-16.0); Lymphocytes # (A) 2.6 k/uL (1.0-4.8); Lymphocytes % (A) 35 %; MCH 33.3 pg (25.0-35.0); Mean Platelet Volume 8.7; Monocytes # (A) 0.4 k/uL (0-1.0); Monocytes % (A) 5 %; Neutrophils # (A) 4.3 k/uL (1.3-7.7); Neutrophils % (A) 58 %; Platelet Count 154 k/uL (150-450); RBC 2.66 m/uL (3.80-5.40); WBC 7.4 k/uL (3.8-10.6)
[2021-10-17 06:37] LABS: African American GFR (CKD) >90 (>60 ml/min/1.73 sqM); Anion Gap 3 mmol/L; Blood Urea Nitrogen 5 mg/dL (7-17); Calcium 8.1 mg/dL (8.4-10.2); Carbon Dioxide 29 mmol/L (22-30); Chloride 101 mmol/L (98-107); Glucose 350 mg/dL (74-99); Magnesium 1.6 mg/dL (1.6-2.3); Non-African American GFR(CKD) >90 (>60 ml/min/1.73 sqM); Potassium 3.6 mmol/L (3.5-5.1); Sodium 133 mmol/L (137-145)
[2021-10-17] MEDS ORDERED: HYDROmorphone 0.5 MG/0.5 ML SYRINGE IVP PRN (07:00)
[2021-10-17] MEDS ORDERED: PANTOPRAZOLE 40 MG TABLET PO SCH (07:30)
[2021-10-17] MEDS: DEXTROSE 5%-0.45% NACL 1,000 ML IV SCH ×3 (07:41→23:56)
[2021-10-17] MEDS: HYDROcodone/APAP 5-325MG 1 EACH TAB PO PRN ×3 (07:53→17:08)
[2021-10-17] MEDS: DOCUSATE 100 MG CAP PO SCH ×2 (07:54→21:37)
[2021-10-17] MEDS: HEPARIN SODIUM,PORCINE/PF 5,000 UNIT/0.5 ML SYRINGE SQ SCH ×3 (07:54→23:54)
[2021-10-17] MEDS: MAGNESIUM SULFATE-D5W PMX 1 GM in DEXTROSE/WATER 1 100ML.BAG IVPB SCH ×3 (09:13→11:43)
--- NOTE | 2021-10-17 10:04 | P.PN ---
Subjective Progress Note Date: 10/17/21 Principal diagnosis: Right breast invasive ductal breast carcinoma/status post bilateral mastectomy Vita is a 65-year-old white female status post bilateral mastectomy for invasi ve ductal carcinoma of the right breast on [id number]. Postprocedure the patient did well but was noted to have some increased NATHANIEL output from the right side. The patient developed an increasing and painful hematoma on the right chest wall and was taken for evacuation of the hematoma on . This is postop day #1 from evacuation of hematoma. The patient's hemoglobin is 8.9. Left NATHANIEL drain 5 mL, right NATHANIEL drain anterior 50 mL serous, posterior drain 2 mL serous. Objective - Vital Signs Vital signs: Vital Signs Temp 98.5 F 10/17/21 07:35 Pulse 76 10/17/21 07:35 Resp 16 10/17/21 07:35 BP 102/51 10/17/21 07:35 Pulse Ox 97 10/17/21 07:35 Intake & Output 10/16/21 10/17/21 10/17/21 18:59 06:59 18:59 Intake Total 2100 Output Total 78 70 25 Balance 2021 Intake: IV 2100 Output: Drainage 68 70 25 LEFT DRAIN 50 5 3 RIGHT DRAIN A (ANTERIOR) 18 60 20 RIGHT DRAIN B (LATERAL/ 5 2 POSTERIOR) Estimated Blood Loss 10 Other: # Voids 1 - Constitutional General appearance: Present: cooperative - EENT Eyes: Present: EOMI ENT: Present: hearing grossly normal - Neck Neck: Present: normal ROM - Respiratory Respiratory: bilateral: CTA - Cardiovascular Rhythm: regular Heart sounds: normal: S1, S2 - Integumentary Integumentary: Present: normal turgor - Psychiatric Psychiatric: Present: A&O x's 3, appropriate affect, intact judgment & insight - Additional findings Additional findings: Dressing changed: Bilateral mastectomy site incisions clean and dry no evidence of hematoma on either chest wall NATHANIEL output serosanguineous bilateral - Labs CBC & Chem 7: 10/17/21 05:38 10/17/21 05:38 Labs: Abnormal Lab Results - Last 24 Hours (Table) 10/16/21 10/16/21 10/17/21 Range/Units 11:56 20:59 05:38 RBC 3.54 L 2.75 L 2.66 L (3.80-5.40) m/uL Hgb 8.9 L D 8.9 L (11.4-16.0) gm/dL Hct 28.2 L 26.9 L (34.0-46.0) % MCV 102.6 H D 101.0 H (80.0-100.0) fL Plt Count 140 L (150-450) k/uL Lymphocytes # 0.9 L (1.0-4.8) k/uL Sodium (137-145) mmol/L BUN (7-17) mg/dL Glucose (74-99) mg/dL Calcium (8.4-10.2) mg/dL 10/17/21 Range/Units 05:38 RBC (3.80-5.40) m/uL Hgb (11.4-16.0) gm/dL Hct (34.0-46.0) % MCV (80.0-100.0) fL Plt Count (150-450) k/uL Lymphocytes # (1.0-4.8) k/uL Sodium 133 L (137-145) mmol/L BUN 5 L (7-17) mg/dL Glucose 350 H (74-99) mg/dL Calcium 8.1 L (8.4-10.2) mg/dL Assessment and Plan Assessment: Impression: 1. Patient is a 65-year-old white female status post bilateral mastectomy with right sentinel node biopsy for invasive ductal carcinoma 2. Recent increased NATHANIEL output on the right side serosanguineous in nature with evident right diffuse hematoma led to evacuation of hematoma postop day #1 Plan: 1. CBC in a.m. 2. Close surveillance 3. oral Iron 4. Change IV heparin lock
--- NOTE | 2021-10-17 10:46 | P.PN ---
Subjective Progress Note Date: 10/17/21 CHIEF COMPLAINT: Right breast cancer HISTORY OF PRESENT ILLNESS: Patient seen and examined this morning. This is a 65-year-old female with right breast cancer status post bilateral simple mastectomy with right breast sentinel lymph node biopsy. Patient was taken back to the OR yesterday by Dr. Little for evacuation of expanding hematoma, irrigation of wound, oversewing anterior chest wall vessel and revision of incision. Patient does report having pain mostly at the NATHANIEL drain sites on the right. However, pain is controlled with pain medication. She reports nausea but no vomiting. She was able to tolerate breakfast this morning. Afebrile. WBC is 7.4 hemoglobin is 8.9 magnesium is low at 1.6 and being replaced. NATHANIEL drain on the left 3 mL service and was fluid. Right anterior NATHANIEL drain 20 mL serous fluid and posterior drain 2 mL serous fluid. PHYSICAL EXAM: VITAL SIGNS: Reviewed. GENERAL: Well-developed in no acute distress. HEENT: No sclera icterus. Extraocular movements grossly intact. Moist buccal mucosa. Head is atraumatic, normocephalic. ABDOMEN: Soft. Nondistended. Nontender. NEUROLOGIC: Alert and oriented. Cranial nerves II through XII grossly intact. Breast: Patient's breasts are Kamari wrap. Decrease in swelling. ASSESSMENT: 1. Right breast cancer status post bilateral simple mastectomy with right breast sentinel lymph node biopsy 2. Right breast hematoma status post evacuation of hematoma. Postop #1 3. Hypomagnesemia PLAN: -Continue regular diet -Repeat CBC in a.m. -Continue to monitor NATHANIEL drain output -Continue pain medication as needed -Continue antiemetics as needed -Encourage patient to ambulate -Encourage patient to use incentive spirometer -Magnesium being replaced Physician [employer] note has been reviewed by physician. Signing provider agrees with the documented findings, assessment, and plan of care. Objective - Vital Signs Vital signs: Vital Signs Temp 98.5 F 10/17/21 07:35 Pulse 76 10/17/21 07:35 Resp 16 10/17/21 07:35 BP 102/51 10/17/21 07:35 Pulse Ox 97 10/17/21 07:35 Intake & Output 10/16/21 10/17/21 10/17/21 18:59 06:59 18:59 Intake Total 2100 Output Total 78 70 25 Balance 2022 -70 -25 Intake: IV 2100 Output: Drainage 68 70 25 LEFT DRAIN 50 5 3 RIGHT DRAIN A (ANTERIOR) 18 60 20 RIGHT DRAIN B (LATERAL/ 5 2 POSTERIOR) Estimated Blood Loss 10 Other: # Voids 1 - Labs CBC & Chem 7: 10/17/21 05:38 10/17/21 05:38 Labs: Abnormal Lab Results - Last 24 Hours (Table) 10/16/21 10/16/21 10/17/21 Range/Units 11:56 20:59 05:38 RBC 3.54 L 2.75 L 2.66 L (3.80-5.40) m/uL Hgb 8.9 L D 8.9 L (11.4-16.0) gm/dL Hct 28.2 L 26.9 L (34.0-46.0) % MCV 102.6 H D 101.0 H (80.0-100.0) fL Plt Count 140 L (150-450) k/uL Lymphocytes # 0.9 L (1.0-4.8) k/uL Sodium (137-145) mmol/L BUN (7-17) mg/dL Glucose (74-99) mg/dL Calcium (8.4-10.2) mg/dL 10/17/21 Range/Units 05:38 RBC (3.80-5.40) m/uL Hgb (11.4-16.0) gm/dL Hct (34.0-46.0) % MCV (80.0-100.0) fL Plt Count (150-450) k/uL Lymphocytes # (1.0-4.8) k/uL Sodium 133 L (137-145) mmol/L BUN 5 L (7-17) mg/dL Glucose 350 H (74-99) mg/dL Calcium 8.1 L (8.4-10.2) mg/dL
[2021-10-17] MEDS ORDERED: IRON POLYSACCHARIDES COMPLEX 150 MG CAP PO SCH (12:00)
[2021-10-17] MEDS: LACTATED RINGERS 1,000 ML IV SCH (13:33)
--- NOTE | 2021-10-17 14:53 | P.PN ---
Subjective Progress Note Date: 10/17/21 Hospital course: Patient is a 65-year-old female with recent diagnosis of breast cancer invasive ductal carcinoma. She is currently admitted under Gen. surgery team and underwent bilateral simple mastectomy with right breast sentinel lymph node biopsies completed by Dr. Jarrell on 10/14/21. We have been consulted to provide continued medical management throughout patient's hospitalization. Physical exam: patient seen and fully evaluated at bedside this morning. Patient doing well. She was taken down to or yesterday afternoon for evacuation of expanding hematoma. NATHANIEL drains in place. Surgical incision intact and looks unremarkable with no signs of dehiscence, erythema, or active drainage. Patient reports mild pain to incision site across the anterior chest patient otherwise denies having any complaints including headache, lightheadedness, dizziness, palpitations, shortness of breath, dyspnea with exertion, nausea, vomiting, or experiencing any numbness/tingling/weakness in her extremities. Patient tolerating oral intake well and states that her pain is being managed adequately. Patient denies having any further needs or complaints at this time. Hemoglobin stable at 8.9. We will continue to monitor closely with repeat a.m. labs. Vital signs reviewed and stable. General: Nontoxic, no distress and appears stated age. Derm: Skin warm and dry, normal coloration for ethnicity. Head: Atraumatic, normocephalic and symmetric. Eyes: EOMs intact, no lid lag, and anicteric sclera Mouth: no lip lesions, mucus membranes moist Cardiovascular: regular rate and rhythm with normal S1S2, no murmur, positive posterior tibial pulses bilaterally, and cap refill < 2 seconds. Lungs: Respirations even, regular, and unlabored on room air. Lungs CTA bilaterally, no rhonchi, no rales, no wheezing, and no accessory muscle usage. Abdominal: soft, nontender to palpation, no guarding, no appreciable or ganomegaly Ext: ROM intact. No gross muscle atrophy, no edema, no contractures Neuro: Speech clear, face symmetrical and CN II-XII grossly intact with no noted focal neuro deficits Psych: Alert and oriented to person, place, time, and situation. Appropriate and pleasant affect. Assessment and Plan of Care: Status post bilateral simple mastectomy with right breast sentinel lymph node biopsies completed by Dr. Jarrell on 10/14/21 secondary to Invasive ductal carcinoma of the breast -Patient is postoperative day 3 -Wound care, DVT prophylaxis, pain management, and dressing changes per primary admitting general surgery team. -patient was taken back to OR yesterday afternoon for evacuation of expanding hematoma. -Patient currently on DVT prophylaxis with heparin. -Encourage use of incentive spirometer 10-15 times hourly while awake. -Encourage use of splinting and deep breathing exercises. -Symptomatic care and pain management. Acute blood loss Postoperative anemia -Hemoglobin stable at 8.9. We will continue to monitor closely with repeat a.m. labs. Postoperative nausea -Continue oral Zofran 4 mg every 6 hours as needed along with Reglan 10 mg IVP for breakthrough episodes of nausea/vomiting. -Advance diet as patient tolerates. Intermittent asthma -Encourage use of incentive spirometer 10-15 times hourly while awake. -Duo nebs as needed for wheezing and/or shortness of breath. Hypothyroidism Continue daily medication regimen with level thyroxine 75 g each morning. Thank you for allowing us to participate in the care of this pleasant patient. Do not hesitate to contact us with questions. Someone can be reached from the [facility] hospitalist group all hours of the day at [phone] or via [employer]. Objective - Vital Signs Vital signs: Vital Signs Temp 98.5 F 10/17/21 02:00 Pulse 72 10/17/21 02:00 Resp 16 10/17/21 02:00 BP 91/49 10/17/21 02:00 Pulse Ox 98 10/17/21 02:00 Intake & Output 10/16/21 10/17/21 10/17/21 18:59 06:59 18:59 Intake Total 2100 Output Total 78 70 Balance 2021 Intake: IV 2100 Output: Drainage 68 70 LEFT DRAIN 50 5 RIGHT DRAIN A (ANTERIOR) 18 60 RIGHT DRAIN B (LATERAL/ 5 POSTERIOR) Estimated Blood Loss 10 Other: # Voids 1 - Labs CBC & Chem 7: 10/17/21 05:38 10/17/21 05:38 Labs: Abnormal Lab Results - Last 24 Hours (Table) 10/16/21 10/16/21 10/16/21 Range/Units 08:11 11:56 20:59 RBC 3.58 L 3.54 L 2.75 L (3.80-5.40) m/uL Hgb 8.9 L D (11.4-16.0) gm/dL Hct 28.2 L (34.0-46.0) % MCV 102.6 H D (80.0-100.0) fL Plt Count 140 L (150-450) k/uL Lymphocytes # 0.9 L (1.0-4.8) k/uL Sodium (137-145) mmol/L BUN (7-17) mg/dL Glucose (74-99) mg/dL Calcium (8.4-10.2) mg/dL 10/17/21 10/17/21 Range/Units 05:38 05:38 RBC 2.66 L (3.80-5.40) m/uL Hgb 8.9 L (11.4-16.0) gm/dL Hct 26.9 L (34.0-46.0) % MCV 101.0 H (80.0-100.0) fL Plt Count (150-450) k/uL Lymphocytes # (1.0-4.8) k/uL Sodium 133 L (137-145) mmol/L BUN 5 L (7-17) mg/dL Glucose 350 H (74-99) mg/dL Calcium 8.1 L (8.4-10.2) mg/dL
[2021-10-17] MEDS: ACETAMINOPHEN TAB 325 MG TAB PO PRN (23:59)
[2021-10-18 03:59] VITALS: TEMP 99.2
[2021-10-18] MEDS: ACETAMINOPHEN TAB 325 MG TAB PO PRN (06:09)
[2021-10-18] MEDS: LEVOTHYROXINE 75 MCG TAB PO SCH (06:12)
[2021-10-18 06:16] LABS: HCT 27.7 % (34.0-46.0); HGB 9.5 gm/dL (11.4-16.0); MCH 33.4 pg (25.0-35.0); MCHC 34.3 g/dL (31.0-37.0); MCV 97.2 fL (80.0-100.0); Mean Platelet Volume 8.4; Platelet Count 159 k/uL (150-450); RBC 2.85 m/uL (3.80-5.40); RDW 12.1 % (11.5-15.5); WBC 9.2 k/uL (3.8-10.6)
[2021-10-18 06:37] LABS: African American GFR (CKD) >90 (>60 ml/min/1.73 sqM); Anion Gap 3 mmol/L; Blood Urea Nitrogen 13 mg/dL (7-17); Calcium 8.8 mg/dL (8.4-10.2); Carbon Dioxide 32 mmol/L (22-30); Chloride 101 mmol/L (98-107); Glucose 101 mg/dL (74-99); Magnesium 1.9 mg/dL (1.6-2.3); Non-African American GFR(CKD) 87 (>60 ml/min/1.73 sqM); Potassium 4.2 mmol/L (3.5-5.1); Sodium 136 mmol/L (137-145)
[2021-10-18 08:15] VITALS: BP 97/56; PULSE 69
[2021-10-18] MEDS: HEPARIN SODIUM,PORCINE/PF 5,000 UNIT/0.5 ML SYRINGE SQ SCH (08:20)
[2021-10-18] MEDS: DOCUSATE 100 MG CAP PO SCH (08:20)
--- NOTE | 2021-10-18 08:57 | P.PN ---
Subjective Progress Note Date: 10/18/21 Principal diagnosis: Right breast invasive ductal breast carcinoma/status post bilateral mastectomy/POD #2 evacuation of right chest wall hematoma Vita is a 65-year-old white female status post bilateral mastectomy for invasive ductal carcinoma of the right breast on [id number]. Postprocedure the patient did well but was noted to have some increased NATHANIEL output from the right side. The patient developed an increasing and painful hematoma on the right chest wall and was taken for evacuation of the hematoma on . This is postop day #2 from evacuation of hematoma. The patient's hemoglobin was 8.9, now increased to 9.5. Objective - Vital Signs Vital signs: Vital Signs Temp 99.2 F 10/18/21 02:00 Pulse 69 10/18/21 07:29 Resp 17 10/18/21 07:29 BP 97/56 10/18/21 07:29 Pulse Ox 98 10/18/21 07:29 Intake & Output 10/17/21 10/18/21 10/18/21 18:59 06:59 18:59 Output Total 68 59 Balance -68 -59 Output: Drainage 68 59 LEFT DRAIN 6 2 RIGHT DRAIN A (ANTERIOR) 60 45 RIGHT DRAIN B (LATERAL/ 2 12 POSTERIOR) Other: # Voids 2 1 - Constitutional General appearance: Present: cooperative - EENT Eyes: Present: EOMI ENT: Present: hearing grossly normal - Respiratory Respiratory: bilateral: CTA - Cardiovascular Heart sounds: normal: S1, S2 - Integumentary Integumentary Comment(s): Bilateral mastectomy incisions clean and dry No evidence of hematoma at this time NATHANIEL output is serous from all drains The patient does have some ecchymosis over the chest wall Integumentary: Present: normal turgor - Labs CBC & Chem 7: 10/18/21 05:28 10/18/21 05:28 Labs: Abnormal Lab Results - Last 24 Hours (Table) 10/18/21 10/18/21 Range/Units 05:28 05:28 RBC 2.85 L (3.80-5.40) m/uL Hgb 9.5 L (11.4-16.0) gm/dL Hct 27.7 L (34.0-46.0) % Sodium 136 L (137-145) mmol/L Carbon Dioxide 32 H (22-30) mmol/L Glucose 101 H (74-99) mg/dL Assessment and Plan Assessment: Impression: 1. Patient is a 65-year-old white female status post bilateral mastectomy with right sentinel node biopsy for invasive ductal carcinoma 2. Stable status post evacuation hematoma right chest wall Plan: 1. SD home to be followed as an outpatient
[2021-10-18] MEDS ORDERED: FERROUS SULFATE 325 MG TAB PO SCH (09:00)
--- NOTE | 2021-10-18 09:00 | P.DS ---
Providers Date of admission: 10/17/21 11:19 Attending physician: Jose Alberto Jarrell Consults: 10/14/21 12:35 Consult Physician Routine Consulting Provider: Martha Boyle Consult Reason/Comments: med mgmt Do you want consulting provider notified?: Yes Primary care physician: Mikie Carrillo Plan - Discharge Summary Discharge Rx Participant: No New Discharge Prescriptions: No Action Levothyroxine Sodium [Synthroid] 75 mcg PO QAM Calcium Carbonate [Calcium] 600 mg PO DAILY Cholecalciferol [Vitamin D3] 5,000 unit PO DAILY Magnesium 500 mg PO DAILY Ascorbic Acid [Vitamin C] 1,000 mg PO DAILY Turmeric Root Extract [Turmeric] 500 mg PO DAILY diphenhydrAMINE HCL [Benadryl] 0.5 tab PO Discharge Medication List Calcium Carbonate [Calcium] 600 mg PO DAILY 04/27/18 [History] Levothyroxine Sodium [Synthroid] 75 mcg PO QAM 04/27/18 [History] Cholecalciferol [Vitamin D3] 5,000 unit PO DAILY 05/04/18 [History] Magnesium 500 mg PO DAILY 05/03/19 [History] Ascorbic Acid [Vitamin C] 1,000 mg PO DAILY 07/24/20 [History] Turmeric Root Extract [Turmeric] 500 mg PO DAILY 07/24/20 [History] diphenhydrAMINE HCL [Benadryl] 0.5 tab PO 10/14/21 [History] Follow up Appointment(s)/Referral(s): Jose Alberto Jarrell MD [Medical Doctor] - 1 Week Activity/Diet/Wound Care/Special Instructions: Teach patient drain care Wear Kamari wrap Do not drive until seen by Dr. Ramirez Discharge home if okay with medicine Discharge Disposition: HOME SELF-CARE
--- NOTE | 2021-10-18 09:10 | P.PN ---
Subjective Progress Note Date: 10/18/21 Hospital course: Patient is a 65-year-old female with recent diagnosis of breast cancer invasive ductal carcinoma. She is currently admitted under Gen. surgery team and underwent bilateral simple mastectomy with right breast sentinel lymph node biopsies completed by Dr. Jarrell on 10/14/21. We have been consulted to provide continued medical management throughout patient's hospitalization. Physical exam: Patient seen and fully evaluated at bedside this morning. Patient continues to be doing well. She was sitting up on the edge of bed having bandage changed from incision. Surgical incisions from bilateral mastectomy are well approximated with no erythema, swelling, or drainage surrounding. Patient has mild bruising from previous hematoma site with no signs of hematoma reoccurrence. NATHANIEL drains intact 3. Patient reports her pain is controlled and denies having any further complaints at this time. Patient reports she looks forward to going home today. Patient denies having any headache, lightheadedn ess, dizziness, chest pain, palpitations, shortness of breath, dyspnea with exertion, nausea, vomiting, or experiencing any numbness/tingling/weakness in her extremities. Hemoglobin remains stable at 9.5 and hypomagnesemia has resolved. Patient medically stable at this time. Vital signs reviewed and stable. General: Nontoxic, no distress and appears stated age. Derm: Skin warm and dry, normal coloration for ethnicity. Head: Atraumatic, normocephalic and symmetric. Eyes: EOMs intact, no lid lag, and anicteric sclera Mouth: no lip lesions, mucus membranes moist Cardiovascular: regular rate and rhythm with normal S1S2, no murmur, positive posterior tibial pulses bilaterally, and cap refill < 2 seconds. Lungs: Respirations even, regular, and unlabored on room air. Lungs CTA bilatera lly, no rhonchi, no rales, no wheezing, and no accessory muscle usage. Abdominal: soft, nontender to palpation, no guarding, no appreciable organomegaly Ext: ROM intact. No gross muscle atrophy, no edema, no contractures Neuro: Speech clear, face symmetrical and CN II-XII grossly intact with no noted focal neuro deficits Psych: Alert and oriented to person, place, time, and situation. Appropriate and pleasant affect. Assessment and Plan of Care: Status post bilateral simple mastectomy with right breast sentinel lymph node biopsies completed by Dr. Jarrell on 10/14/21 secondary to Invasive ductal carcinoma of the breast -Patient is postoperative day 4 -Wound care, DVT prophylaxis, pain management, and dressing changes per primary admitting general surgery team. -patient was taken back to OR 10/16/21 for evacuation of expanding hematoma. -Patient currently on DVT prophylaxis with heparin. -Encourage use of incentive spirometer 10-15 times hourly while awake. -Encourage use of splinting and deep breathing exercises. -Symptomatic care and pain management. Acute blood loss Postoperative anemia, stable -Hemoglobin stable at 9.5. We will continue to monitor closely with repeat a.m. labs. Hypomagnesemia, resolved Postoperative nausea -Continue oral Zofran 4 mg every 6 hours as needed along with Reglan 10 mg IVP for breakthrough episodes of nausea/vomiting. -Advance diet as patient tolerates. Intermittent asthma -Encourage use of incentive spirometer 10-15 times hourly while awake. -Duo nebs as needed for wheezing and/or shortness of breath. Hypothyroidism Continue daily medication regimen with level thyroxine 75 g each morning. Thank you for allowing us to participate in the care of this pleasant patient. Do not hesitate to contact us with questions. Someone can be reached from the [facility] hospitalist group all hours of the day at [phone] or via Ho[employer]. Objective - Vital Signs Vital signs: Vital Signs Temp 99.2 F 10/18/21 02:00 Pulse 96 10/18/21 02:00 Resp 18 10/18/21 02:00 BP 110/62 10/18/21 02:00 Pulse Ox 99 10/18/21 02:00 Intake & Output 10/17/21 10/18/21 10/18/21 18:59 06:59 18:59 Output Total 68 59 Balance -68 -59 Output: Drainage 68 59 LEFT DRAIN 6 2 RIGHT DRAIN A (ANTERIOR) 60 45 RIGHT DRAIN B (LATERAL/ 2 12 POSTERIOR) Other: # Voids 2 1 - Labs CBC & Chem 7: 10/18/21 05:28 10/18/21 05:28 Labs: Abnormal Lab Results - Last 24 Hours (Table) 10/18/21 10/18/21 Range/Units 05:28 05:28 RBC 2.85 L (3.80-5.40) m/uL Hgb 9.5 L (11.4-16.0) gm/dL Hct 27.7 L (34.0-46.0) % Sodium 136 L (137-145) mmol/L Carbon Dioxide 32 H (22-30) mmol/L Glucose 101 H (74-99) mg/dL
[2021-10-18 09:33] VITALS: RESP 18
--- NOTE | 2021-10-18 14:01 | P.DS ---
Providers Date of admission: 10/17/21 11:19 Expected date of discharge: 10/18/21 Attending physician: Jose Alberto Jarrell Consults: 10/14/21 12:35 Consult Physician Routine Consulting Provider: Martha Boyle Consult Reason/Comments: med mgmt Do you want consulting provider notified?: Yes Primary care physician: [facility] Course: Discharge diagnosis 1. Right breast cancer status post bilateral simple mastectomy with right breast sentinel lymph node biopsy 2. Right breast hematoma status post evacuation of hematoma 3. Hypomagnesemia improved Hospital course This is a 65-year-old female with right breast cancer status post bilateral simple mastectomy with right breast sentinel lymph node biopsy on 10/14/2021. Patient was taken back to the OR on 10/16/[address] Little for evacuation of expanding hematoma, irrigation of wound, oversewing anterior chest wall vessel and revision of incision. Patient tolerated procedure well. Her hemoglobin is trending upwards now at 9.5. Her pain is controlled. There is no further evidence of hematoma. Patient does have ecchymosis over the chest wall. NATHANIEL drainage drains with serosanguineous output. Patient discharged home with NATHANIEL drains. Patient is tolerating diet. She is up and ambulating. She is afebrile. She is stable for discharge. Please refer to chart for any further details. Physician Sole Dyer note has been reviewed by physician. Signing provider agrees with the documented findings, assessment, and plan of care. Patient Condition at Discharge: Stable Plan - Discharge Summary Discharge Rx Participant: No New Discharge Prescriptions: New Ferrous Sulfate [Iron (65 MG Elemental)] 325 mg PO DAILY 30 Days #30 tab Acetaminophen Tab [Tylenol] 650 mg PO Q6HR PRN tab PRN Reason: Fever and/ or mild Pain Ondansetron [Zofran] 4 mg PO Q8HR PRN #30 tab PRN Reason: Nausea And Vomiting HYDROcodone/APAP 5-325MG [Cypress 5-325] 1 tab PO Q6HR PRN 2 Days #8 tab PRN Reason: Pain Continue Levothyroxine Sodium [Synthroid] 75 mcg PO QAM Calcium Carbonate [Calcium] 600 mg PO DAILY Cholecalciferol [Vitamin D3 (25 Mcg = 1000 Iu)] 5,000 unit PO DAILY Magnesium 500 mg PO DAILY Ascorbic Acid [Vitamin C] 1,000 mg PO DAILY Turmeric Root Extract [Turmeric] 500 mg PO DAILY diphenhydrAMINE HCL [Benadryl] 0.5 tab PO Discharge Medication List Calcium Carbonate [Calcium] 600 mg PO DAILY 04/27/18 [History] Levothyroxine Sodium [Synthroid] 75 mcg PO QAM 04/27/18 [History] Cholecalciferol [Vitamin D3 (25 Mcg = 1000 Iu)] 5,000 unit PO DAILY 05/04/18 [History] Magnesium 500 mg PO DAILY 05/03/19 [History] Ascorbic Acid [Vitamin C] 1,000 mg PO DAILY 07/24/20 [History] Turmeric Root Extract [Turmeric] 500 mg PO DAILY 07/24/20 [History] diphenhydrAMINE HCL [Benadryl] 0.5 tab PO 10/14/21 [History] Acetaminophen Tab [Tylenol] 650 mg PO Q6HR PRN tab 10/18/21 [Rx] Ferrous Sulfate [Iron (65 MG Elemental)] 325 mg PO DAILY 30 Days #30 tab 10/18/21 [Rx] HYDROcodone/APAP 5-325MG [Cypress 5-325] 1 tab PO Q6HR PRN 2 Days #8 tab 10/18/21 [Rx] Ondansetron [Zofran] 4 mg PO Q8HR PRN #30 tab 10/18/21 [Rx] Follow up Appointment(s)/Referral(s): Jose Alberto Jarrell MD [Medical Doctor] - 10/23/21 4:00 pm Patient Instructions/Handouts: Scar Revision (DC) Activity/Diet/Wound Care/Special Instructions: Teach patient drain care Wear Kamari wrap Do not drive until seen by Dr. Jarrell Discharge home if okay with medicine You may shower. No bath soaks. Do not exceed over 4 g of Tylenol in a 24-hour period Keep a log of NATHANIEL drain output and bring with you to your follow-up appointment Milk/strip drains 2-3 times a day Discharge Disposition: HOME SELF-CARE
== END 2021-10-18 11:00 | disposition home or self-care (01) | DRG 909 ==
LOC: OR 06:49 → 6PED 12:40 → OR 10-15 15:27 → 6PED 10-15 15:39 → OBSVTOIN 10-17 11:19
PROVIDERS: ADMIT Surgery; ATTEND Surgery
PROC: 0HTV0ZZ Resection of Bilateral Breast, Open Approach (ICD-10-PCS; 2021-10-14 09:00)
PROC: 07B50ZX Excision of Right Axillary Lymphatic, Open Approach, Diagnostic (ICD-10-PCS; principal; 2021-10-16 14:10)
DX: L76.32 Postprocedural hematoma of skin and subcutaneous tissue following other procedure (principal); C50.911 Malignant neoplasm of unspecified site of right female breast; E03.9 Hypothyroidism, unspecified; J45.20 Mild intermittent asthma, uncomplicated; E83.42 Hypomagnesemia; M19.90 Unspecified osteoarthritis, unspecified site; G43.909 Migraine, unspecified, not intractable, without status migrainosus; Z80.3 Family history of malignant neoplasm of breast; Y83.4 Other reconstructive surgery as the cause of abnormal reaction of the patient, or of later complication, without mention of misadventure at the time of the procedure; Y81.3 Surgical instruments, materials and general- and plastic-surgery devices (including sutures) associated with adverse incidents; Z80.51 Family history of malignant neoplasm of kidney; Z82.49 Family history of ischemic heart disease and other diseases of the circulatory system; Z90.710 Acquired absence of both cervix and uterus; Z90.722 Acquired absence of ovaries, bilateral; Z79.890 Hormone replacement therapy
CPT/HCPCS: 38792; 80048; 80053; 83735; 85025; 85027; 85610; 86850; 86900; 86901; 87635; 88305; 88307; 88341; 88342

== ENCOUNTER → 2022-03-31 | Outpatient (CLI) | payer MEDICARE, BC ==
[2022-03-31 18:07] LABS: Basophils # (A) 0.04 X 10*3/uL (0.00-0.10); Basophils % (A) 0.5 %; Eosinophils # (A) 0.16 X 10*3/uL (0.04-0.35); Eosinophils % (A) 2.2 %; HCT 42.9 % (37.2-46.3); HGB 13.8 g/dL (12.0-15.0); Immature Grans, Automated 0.3 %; Lymphocytes # (A) 2.22 X 10*3/uL (0.90-5.00); Lymphocytes % (A) 30.2 %; MCH 30.6 pg (27.0-32.0); MCHC 32.2 g/dL (32.0-37.0); MCV 95.1 fL (80.0-97.0); Mean Platelet Volume 11.2 fL (9.5-12.2); Monocytes # (A) 0.57 X 10*3/uL (0.20-1.00); Monocytes % (A) 7.8 %; NRBC Per 100 WBC 0 /100 WBCS (0.0-0.0); Neutrophils # (A) 4.34 X 10*3/uL (1.80-7.70); Platelet Count 221 X 10*3/uL (140-440); RBC 4.51 X 10*6/uL (4.10-5.20); RDW 12.6 % (11.5-14.5); WBC 7.35 X 10*3/uL (4.50-10.00)
[2022-03-31 21:29] LABS: African American GFR (CKD) 110.1 (60.0-200.0); Albumin 4.6 g/dL (3.8-4.9); Anion Gap 9.3 mmol/L (10.00-18.00); BUN/Creat Ratio 25.67 Ratio (12.00-20.00); Blood Urea Nitrogen 15.4 mg/dL (9.0-27.0); Calcium 9.8 mg/dL (8.7-10.3); Carbon Dioxide 27.7 mmol/L (20.0-27.5); Globulin 2.3 g/dL (1.6-3.3); Potassium 4.3 mmol/L (3.5-5.5); Total Bilirubin 0.2 mg/dL (0.30-1.20); Total Protein 6.9 g/dL (6.2-8.2)
== END | disposition home or self-care (01) ==
LOC: LABWHC1 11:28
PROVIDERS: ATTEND Internal Medicine Critical Care Medicine
DX: D64.9 Anemia, unspecified (principal)
CPT/HCPCS: 36415; 80053; 85025

== ENCOUNTER → 2022-07-28 | Outpatient (CLI) | payer MEDICARE, BC ==
--- NOTE | 2022-07-28 11:50 | BD ---
EXAMINATION TYPE: Axial Bone Density DATE OF EXAM: 07/28/2022 COMPARISON: NONE CLINICAL HISTORY: 66 years year old Female. ICD-10 CODE: C50.411 BREAST CA Height: 62.5 Weight: 153.9 FRAX RISK QUESTIONS: Alcohol (3 or more units per day): NO Family History (Parent hip fracture): NO Glucocorticoids (More than 3mos): NO History of Fracture in Adulthood: YES, T3, FINGERS Secondary Osteoporosis: 1. Type 1 Diabetes: NO 2. Hyperthyroidism: NO 3. Menopause before 45: NO 4. Malnutrition: NO 5. Chronic liver disease: FATTY LIVER Rheumatoid Arthritis: NO Current Tobacco Use: NO RISK FACTORS HISTORY OF: Hip Fracture (Right/Left): NO Spine Fracture: T3 When: AGE 56 History of Wrist Fracture: NO Surgery to Spine/Hip(right/left)/Wrist (right/left): NO Family History of Osteoporosis: NO Active: YES Diet low in dairy products/other sources of calcium: NO Postmenopausal woman: YES Take estrogen and/or progesterone medications: ESTROGEN TED How long: 2020 Lost more than 2 inches in height since high school: NO Frequent falls: NO Poor Health: NO Hyperparathyroidism: NO Adrenal Insufficiency: NO MEDICATIONS: Prednisone or other steroids: NO Thyroid Medications: SYNTHROID How Long: SINCE 2000 Osteoporosis Medications: NO Additional Medications: SYNTHROID, ANASTROZOLE, VIT D., CALCIUM, Additional History: BREAST CA., 2020 EXAM MEASUREMENTS: Bone mineral densitometry was performed using the [employer] System. Bone mineral density as measured about the Lumbar spine is: ----- L1-L4(G/cm2): 1.303 T Score Values are as follows: ----- L1: 0.9 ----- L2: 0.4 ----- L3: 1.0 ----- L4: 1.4 ----- L1-L4: 1.0 BASELINE STUDY Bone mineral density about the R hip (g/cm2): 0.961 Bone mineral density about the L hip (g/cm2): 0.969 T Score values are as follows: -----R Neck: -0.6 -----L Neck: -0.5 -----R Total: -0.1 -----L Total: 0.4 BASELINE STUDY FRAX%s: The graph provided illustrates a 12.4% chance for a major osteoporotic fx and a 0.7% chance f or the hips probability for fx in 10 years time. IMPRESSION: Normal (Values between +1 and -1 indicate normal bone mass). Consider repeating this study in 5 year s or sooner if there is some new clinical indication. NOTE: T-SCORE=SD OF THE YOUNG ADULT MEAN.
== END | disposition home or self-care (01) ==
LOC: RADBDWWP 10:03
PROVIDERS: ATTEND Internal Medicine Hematology & Oncology
DX: Z03.89 Encounter for observation for other suspected diseases and conditions ruled out (principal); C50.411 Malignant neoplasm of upper-outer quadrant of right female breast
CPT/HCPCS: 77080

== ENCOUNTER → 2022-09-16 | Outpatient (CLI) | payer MEDICARE, BC ==
[2022-09-16 14:03] VITALS: BP 126/83; PULSE 90; RESP 18; TEMP 98.4
--- NOTE | 2022-09-16 14:33 | P.HPOB ---
History of Present Illness H&P Date: 09/16/22 Chief Complaint: The patient is here for her routine gynecologic exam. This is a 66-year-old with an LMP of 2002. She is status post SHANTEL/BSO for benign reasons. The patient underwent a bilateral mastectomy. She was diagnosed with right breast cancer in the fall of 2020. She chose to have bilateral mastectomies because of her strong family history of breast cancer. She also tested positive for a genetic marker of undetermined significance. She was BRCA negative. She is without gynecologic complaints. Review of Systems The patient has gained 9 pounds over the last year. She denies respiratory, cardiac, or G.I. problems. Past Medical History Past Medical History: Asthma, Cancer, Osteoarthritis (OA), Thyroid Disorder Additional Past Medical History / Comment(s): Right breast cancer 2020. Chronic back problems, migraine headaches and TMJ. Hypothyroid. Past COMMUNITY RELATIONS ASSISTANT history: she does have a history of endometriosis and his status post SHANTEL/BSO (2003). She has no history of STDs. BRCA neg (1 &2). History of Any Multi-Drug Resistant Organisms: None Reported Past Surgical History: Breast Surgery, Hysterectomy, Tonsillectomy Additional Past Surgical History / Comment(s): Colonoscopy . bilateral breast reduction 1984; Right breast core bx (benign 2007), Hematoma in right breast . Right breast stereotactic bx (benign) 06/09/19. Bilateral mastectomies 10/14/2021. 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 - Past Family History Mother Family Medical History: AFIB, Cancer, Congestive Heart Failure (CHF), Hype rtension Additional Family Medical History / Comment(s): Renal cancer. Maternal grandmother and maternal aunt had breast cancer. Grandfather had prostate cancer. Father Family Medical History: Myocardial Infarction ([place]) Sister(s) Family Medical History: Cancer Additional Family Medical History / Comment(s): Breast cancer. This sister's daughter had breast cancer at age 30. Another daughter of hers had the bilateral mastectomy for atypical cells. Medications and Allergies Home Medications Medication Instructions Recorded Confirmed Type Calcium Carbonate [Calcium] 600 mg PO DAILY 04/27/18 09/16/22 History Levothyroxine Sodium [Synthroid] 75 mcg PO QAM 04/27/18 09/16/22 History Cholecalciferol [Vitamin D3 (25 5,000 unit PO DAILY 05/04/18 09/16/22 History Mcg = 1000 Iu)] Magnesium 500 mg PO DAILY 05/03/19 09/16/22 History Ascorbic Acid [Vitamin C] 1,000 mg PO DAILY 07/24/20 09/16/22 History diphenhydrAMINE HCL [Benadryl] 0.5 tab PO DIRECTED PRN 10/14/21 History Acetaminophen Tab [Tylenol] 650 mg PO Q6HR PRN tab 10/18/21 09/16/22 Rx Ondansetron [Zofran] 4 mg PO Q8HR PRN #30 tab 10/18/21 09/16/22 Rx Anastrozole 1 mg PO HS 09/16/22 09/16/22 History Allergies Allergy/AdvReac Type Severity Reaction Status Date / Time levofloxacin [From Levaquin] Allergy Swelling Verified 09/16/22 13:47 NSAIDS (Non-Steroidal AdvReac "RINGING Verified 09/16/22 13:47 Anti-Inflamma IN EARS AND BRUISES Exam Vital Signs Temp Pulse Resp BP Pulse Ox 09/16/22 14:00 98.4 F 90 18 126/83 96 Intake and Output 09/15/22 09/16/22 09/16/22 22:59 06:59 14:59 Other: Weight 71.214 kg Height 5 feet 2 inches, weight 157 pounds, BMI 28.7. This is a well-developed well-nourished white female who is alert and oriented times 3 in no acute distress. HEENT: Within normal limits. NECK: Supple without mass or thyromegaly. CHEST AND LUNGS: Clear to auscultation. HEART: Regular rate and rhythm. BREASTS: Consistent with bilateral mastectomies. The sites are well healed. AXILLARY EXAM: Negative for adenopathy. BACK: Negative for CVA tenderness. ABDOMEN: Soft, nontender, without palpable masses. PELVIC EXAM: External genitalia appears normal with mild atrophy. Vagina appears normal with mild atrophy. There is no evidence of prolapse. Bimanual examination is negative for mass or tenderness. RECTAL EXAM: Rectovaginal exam is negative for mass or tenderness and is negative for occult blood. EXTREMITIES: Nontender. IMPRESSION: 1. 66-year-old menopausal female status post SHANTEL/BSO for benign reasons, with normal pelvic exam. 2. Right breast cancer diagnosed in 2020. She is status post bilateral mastectomies. No evidence of recurrence on exam today. PLAN: 1. Pap smears have been discontinued. 2. Mammograms have been discontinued. 3. Osteoporosis prevention was discussed. I have stressed the importance of adequate calcium, vitamin D and regular exercise. Recommended amounts of calcium and vitamin D were also discussed. She had a bone density test on 07/28/2022 done through her oncologist. This was normal. 4. She has not received a Covid vaccination. Vaccinations are recommended and are available. She will consider this. 5. She was advised to return in one year for her annual well woman exam.
== END | disposition home or self-care (01) ==
LOC: WWCWWP 13:36
PROVIDERS: ATTEND Obstetrics & Gynecology
DX: Z53.9 Procedure and treatment not carried out, unspecified reason (principal)

== ENCOUNTER → 2023-03-23 | Outpatient (CLI) | payer MEDICARE, BC ==
[2023-03-23 21:27] LABS: Basophils # (A) 0.03 X 10*3/uL (0.00-0.10); Basophils % (A) 0.5 %; Eosinophils # (A) 0.09 X 10*3/uL (0.04-0.35); Eosinophils % (A) 1.5 %; HCT 44.8 % (37.2-46.3); HGB 14.9 g/dL (12.0-15.0); Immature Grans, Automated 0.3 %; Lymphocytes % (A) 34.1 %; MCH 31.5 pg (27.0-32.0); MCHC 33.3 g/dL (32.0-37.0); MCV 94.7 fL (80.0-97.0); Mean Platelet Volume 11.2 fL (9.5-12.2); Monocytes # (A) 0.48 X 10*3/uL (0.20-1.00); Monocytes % (A) 7.8 %; NRBC Per 100 WBC 0 /100 WBCS (0.0-0.0); Neutrophils # (A) 3.44 X 10*3/uL (1.80-7.70); Neutrophils % (A) 55.8 %; Platelet Count 231 X 10*3/uL (140-440); RBC 4.73 X 10*6/uL (4.10-5.20); RDW 12.3 % (11.5-14.5); WBC 6.16 X 10*3/uL (4.50-10.00)
[2023-03-23 23:41] LABS: ALT 21 U/L (8-44); AST 23 U/L (13-35); African American GFR (CKD) 93.6 (60.0-200.0); Albumin 4.9 g/dL (3.8-4.9); Albumin/Globulin Ratio 2.03 (1.60-3.17); Alkaline Phosphatase 92 U/L (41-126); Blood Urea Nitrogen 14.8 mg/dL (9.0-27.0); Calcium 9.8 mg/dL (8.7-10.3); Carbon Dioxide 24.6 mmol/L (20.0-27.5); Chloride 105 mmol/L (96-109); Chol/HDL Ratio 3.23 Ratio; Globulin 2.4 g/dL (1.6-3.3); Glucose 94 mg/dL (70-110); LDL Cholesterol,Calculated 133.3 mg/dL (0.0-131.0); Non-African American GFR(CKD) 80.8 (60.0-200.0); Potassium 4.4 mmol/L (3.5-5.5); Sodium 142 mmol/L (135-145); Total Protein 7.3 g/dL (6.2-8.2)
== END | disposition home or self-care (01) ==
LOC: LABWHC1 12:44
PROVIDERS: ATTEND Internal Medicine Critical Care Medicine
DX: Z00.00 Encounter for general adult medical examination without abnormal findings (principal); E03.9 Hypothyroidism, unspecified; M25.9 Joint disorder, unspecified; R53.83 Other fatigue
CPT/HCPCS: 36415; 80053; 80061; 82306; 83036; 84439; 84443; 85025

== ENCOUNTER → 2023-07-01 | Outpatient (CLI) | payer MEDICARE, BC ==
[2023-07-01 12:09] LABS: Chol/HDL Ratio 3.21 Ratio; LDL Cholesterol,Calculated 100.5 mg/dL (0.0-131.0); VLDL Calculation 13.78 mg/dL (5.00-40.00)
== END | disposition home or self-care (01) ==
LOC: LABWHC1 08:43
PROVIDERS: ATTEND Internal Medicine Interventional Cardiology
DX: E78.2 Mixed hyperlipidemia (principal)
CPT/HCPCS: 36415; 80061

== ENCOUNTER → 2023-10-01 | Outpatient (CLI) | payer MEDICARE, BC ==
--- NOTE | 2023-10-05 08:00 | USB ---
Reason for Exam: Clinical finding. Patient History: Menarche at age 13. First Full-Term at age 23. Left ovary removed at age 47. Right ovary removed at age 47. Hysterectomy at age 47. Postmenopausal. Breast cancer, age 65. Estrogen for 1 year, 5 months, from age 53 until age 54. Patient used Hormonal Contraceptives for 2 years. 1984, Bilateral Reduction. 10/14/2021, Bilateral Mastectomy. 09/16/2021, Malignant Core Biopsy on the right side. 09/16/2021, Malignant Core Biopsy on the right side. 06/09/2019, Benign Core Biopsy on the right side. 04/14/2008, Benign Core Biopsy on the right side. Maternal grandmother had breast cancer, age 80. Maternal aunt had breast cancer, age 70. Sister had breast cancer, age 59. Technique: Method: Targeted. Prior Study Comparison: 07/24/2020 Bilateral Screening Mammogram, [facility]. 09/03/2021 Bilateral Diagnostic Mammogram, [facility]. 09/16/2021 Right Diagnostic Mammogram, [facility]. Findings: The area of palpable concern of the right breast and the axilla of the right breast were scanned. There is a 0.5 x 0.7 x 0.6 cm hypoechoic round area which may has circumscribed margins. Vascular flow extends into this area. This area corresponds to the palpable region 11:00 position 3 cm from the nipple. This could be a lymph node. Biopsy is recommended. Overall Assessment: Suspicious, BI-RAD 4 Management: Ultrasound-Guided Core Biopsy of the right breast. A clinical breast exam by your physician is recommended on an annual basis and results should be correlated with mammographic findings. This exam should not preclude additional follow-up of suspicious palpable abnormalities. Results were given to the patient verbally at the time of exam. Electronically signed and approved by: Manny Joseph D.O. Radiologis
== END | disposition home or self-care (01) ==
LOC: RADUSWWP 16:30
PROVIDERS: ATTEND Surgery
DX: R22.2 Localized swelling, mass and lump, trunk (principal); Z78.0 Asymptomatic menopausal state; Z80.3 Family history of malignant neoplasm of breast; Z85.3 Personal history of malignant neoplasm of breast

== ENCOUNTER → 2023-10-14 | Day surgery (SDC) | payer MEDICARE, BC ==
--- NOTE | 2023-10-26 13:03 | USB ---
Prior Study Comparison: 07/24/2020 Bilateral Screening Mammogram, [facility]. 09/03/2021 Bilateral Diagnostic Mammogram, [facility]. 09/16/2021 Right Diagnostic Mammogram, [facility]. Pathology Description: Location: 11 o'clock. Marker Left Behind. Needle Type: Mammotome Cores: 3 Skin Nicks: 1 Gauge: 13 The procedure of ultrasound guided core biopsy was explained to the patient. Benefits, alternatives, and risks were discussed. An informed consent was then obtained. A timeout was performed. The patient was placed in supine positioning for imaging and for the procedure. The overlying skin was prepped and draped in usual sterile fashion. Lidocaine was used as anesthetic into the skin and subcutaneous tissue up to area of concern in the right breast mastectomy region. A small skin davey was made with surgical scalpel. Under ultrasound guidance, a 12-gauge vacuum assisted biopsy device was used to obtain 3 core samples. A biopsy clip was left near the lesion. Hydromark core marker was placed. This appeared to retracts somewhat with withdrawing the placement needle is 1.5 cm away from the lesion as documented on the images. The patient tolerated the procedure well without any immediate complication. The patient was kept in the radiology department for short stay after the procedure and then discharged home in stable condition. Postprocedure mammogram: Due to good visualization of the biopsied subcutaneous structure, mammography was not performed at this time. Impression: Successful ultrasound guided core biopsy of area of concern in the right breast mastectomy region, full pathology results to follow. Recommendations: 1. Recommendations are pending pathology results. Pathology Results: Result: Malignant, Invasive ductal carcinoma. RIGHT BREAST, 11:00 CHEST WALL, NEEDLE CORE BIOPSY: Invasive moderately differentiated ductal carcinoma (grade 2). See surgical pathology cancer case summary. Overall Assessment: Malignant Management: Surgical Consultation of the right breast. Electronically signed and approved by: Manny Joseph D.O. Radiologis
== END | disposition home or self-care (01) ==
LOC: RADUSWWP 10:04
PROVIDERS: ATTEND Surgery
DX: C50.411 Malignant neoplasm of upper-outer quadrant of right female breast (principal); Z17.0 Estrogen receptor positive status [ER+]
CPT/HCPCS: 88305; 88342; 88341; 19083; A4648

== ENCOUNTER → 2023-11-05 | Outpatient (CLI) | payer MEDICARE, BC ==
[2023-11-05 08:53] LABS: African American GFR (CKD) >90 (>60 ml/min/1.73 sqM); Blood Urea Nitrogen 17 mg/dL (7-17); Non-African American GFR(CKD) >90 (>60 ml/min/1.73 sqM)
--- NOTE | 2023-11-05 14:13 | NM ---
EXAMINATION TYPE: NM bone scan whole body DATE OF EXAM: 11/05/2023 COMPARISON: 05/24/2012 CLINICAL INDICATION: Female, 67 years old with history of C50.411 breast ca; Delayed whole-body scanning was performed following the injection of 25.1 mCi Tc 99m MDP. Images acq uired 5 hours post injection. FINDINGS: There is mild to moderate intensity uptake throughout the thoracic and lower lumbar spine. There is mild intensity uptake involving the bilateral knee most typical of arthropathy. Abnormal uptake in the sternoclavicular region appears to be likely post arthritic. Faint uptake bilateral hip and pubic symphysis likely post arthritic. IMPRESSION: Nonspecific uptake throughout the thoracic/lumbar spine felt to be most likely degenerative.
--- NOTE | 2023-11-06 06:29 | CT ---
EXAMINATION TYPE: CT ChestAbdPelvis w con DATE OF EXAM: 11/05/2023 COMPARISON: Same day whole body bone scan HISTORY: breast CA, history of bilateral mastectomy, noticed recent spot on chest CT DLP: 551.9 mGycm. Automated Exposure Control for Dose Reduction was Utilized. CONTRAST: CT scan of the thorax, abdomen and pelvis is performed with oral and with IV Contrast, patient inject ed with 100 mL of Isovue 300. FINDINGS: LUNGS: The lungs are grossly clear, there is no concerning greater than 5 mm parenchymal mass or nodu le identified. There is no pleural effusion or pneumothorax seen. The tracheobronchial tree is pat ent. MEDIASTINUM: There are no greater than 1 cm hilar or mediastinal lymph nodes. No cardiomegaly or pe ricardial effusion is seen. OTHER: Bilateral total mastectomy changes are present.. Surgical clips in the right axillary seen. Th ere are benign appearing subcentimeter lymph nodes in the left axilla. LIVER/GB: No significant abnormality is appreciated. PANCREAS: No significant abnormality is seen. SPLEEN: No significant abnormality is seen. ADRENALS: No significant abnormality is seen. KIDNEYS: Symmetric cortical medullary uptake and excretion without hydronephrosis seen bilaterally. BOWEL: Oral contrast reaches level of the right colon. Cecum is low-lying into the right pelvis. No a bnormal small or large bowel dilatation. GENITAL ORGANS: Uterus is surgically absent. LYMPH NODES: No greater than 1cm abdominal or pelvic lymph nodes are appreciated. OSSEOUS STRUCTURES: No suspicious focal lytic or sclerotic lesion with particular attention to the th oracolumbar spine. OTHER: No significant additional abnormality is seen. IMPRESSION: No suspicious mass or adenopathy to suggest metastatic disease.
== END | disposition home or self-care (01) ==
LOC: RADCTMAIN 08:18
PROVIDERS: ATTEND Internal Medicine Hematology & Oncology
DX: C50.411 Malignant neoplasm of upper-outer quadrant of right female breast (principal); M26.69 Other specified disorders of temporomandibular joint; E03.9 Hypothyroidism, unspecified; R93.7 Abnormal findings on diagnostic imaging of other parts of musculoskeletal system; Z85.3 Personal history of malignant neoplasm of breast; Z71.3 Dietary counseling and surveillance
CPT/HCPCS: 82565; 84520; 71260; 74177; 78306; A9503; Q9967

== ENCOUNTER 2023-11-13 07:55 | Day surgery (SDC) | payer MEDICARE, BC ==
[~2023-11-13 07:55] MED LIST changes: +DEXAMETHASONE SOD PHOSPHATE 4 MG/ML 1 ML VIAL IV ONE; +HEPARIN SODIUM,PORCINE 5,000 UNIT/ML 1 ML VIAL SQ PRN; -HEPARIN SODIUM,PORCINE/PF 5,000 UNIT/0.5 ML SYRINGE SQ PRN; +HYDROmorphone 0.5 MG/0.5 ML SYRINGE IVP PRN; +LACTATED RINGERS 1,000 ML IV SCH; +LIDOCAINE 1% (10MG/ML) FOR IV START INTRADERMA PRN; +ONDANSETRON 4 MG/2 ML VIAL IVP ONE; -Pre Op ABX Message 1 EACH MISC MISCELLANE ONE; +droPERidol 5 MG/2 ML VIAL IVP ONE
[2023-11-13] MEDS ORDERED: LACTATED RINGERS 1,000 ML IV ONE ×2 (08:29→12:55)
--- NOTE | 2023-11-13 09:05 | P.HPADDEND ---
H&P Addendum H&P Addendum Date: 11/13/23 Please refer to recent office notes. Patient with recently diagnosed recurrent right breast cancer. Options discussed at multidisciplinary tumor board. She and I discussed options again by phone. We'll proceed with wire localization excision right chest wall mass.
[2023-11-13] MEDS ORDERED: LIDOCAINE 1% INJ 10MG/ML (20 ML MDV) SQ ONE (09:47)
[2023-11-13] MEDS ORDERED: LIDOCAINE 1% INJ 10MG/ML (20 ML MDV) ONE (11:54)
[2023-11-13] MEDS ORDERED: fentaNYL (PF) 50 MCG/ML 2 ML AMP ONE (11:54)
[2023-11-13] MEDS ORDERED: ePHEDrine 50 MG/ML 1 ML VIAL ONE (11:54)
[2023-11-13] MEDS ORDERED: PROPOFOL 10 MG/ML 20 ML VIAL IV ONE (11:54)
[2023-11-13] MEDS ORDERED: NALOXONE 0.4 MG/ML 1 ML VIAL IV PRN (13:20)
[2023-11-13] MEDS ORDERED: traMADol 50 MG TAB PO PRN (13:20)
--- NOTE | 2023-11-13 13:27 | P.OP ---
Date of Procedure: 11/13/23 Procedure(s) Performed: PREOPERATIVE DIAGNOSIS: Recurrent right-sided breast cancer POSTOPERATIVE DIAGNOSIS: Same PROCEDURE: Excision right chest wall mass with wire localization SURGEON: Wesly EBL: Naye Davis ANESTHESIA: Gen. COMPLICATIONS: None OPERATIVE PROCEDURE: Patient place in the operating table in the supine position. Patient was placed under general anesthesia. Right chest wall prepped and draped sterilely. Wire was entering the chest wall from lateral to medial and slightly directed inferiorly. The palpable mass and the radiographic abnormality was present to to 2.5 cm superior to the transverse mastectomy scar. The patient's chest wall skin was relatively tight. This limited our ability to take a large portion of skin. We started by making an incision through the previous mastectomy scar site medially. Flaps were raised superiorly until the wire and mass were identified. The mass with surrounding benign-appearing breast tissue and chest wall tissue was excised circumferentially. The area where the mass was present immediately beneath the skin grossly raised the concern for possible residual neoplastic tissue at the skin site. A triangle or portion of skin was removed at the mass site. This was sent separately to pathology as new anterior skin margin. The original specimen was painted the appropriate 6 colors. The site was marked with clips. The subcutaneous tissues were then closed using 3-0 Vicryl sutures. The skin was closed using both running 4-0 Monocryl subcuticular sutures and interrupted 4-0 nylon sutures. Skin glue and sterile dressings were applied. DISPOSITION: Stable to recovery room
[2023-11-13 13:34] VITALS: TEMP 97.1
[2023-11-13 14:23] VITALS: BP 126/78; PULSE 99; RESP 16
--- NOTE | 2023-11-26 10:38 | MM ---
Pathology Description: Location: 11 o'clock. The procedure was explained to the patient and all questions were answered. The potential risks including but not limited to bleeding, infection, and potential need for additional work up were discussed. Informed, written consent was obtained. The correct site was marked. A time out was performed. A ultrasound guided wire localization was performed for the right located in the right chest. This was described on the previous report. The skin was prepped in the usual manner. Local anesthetic was administered to the access site using approximately 5 mL of lidocaine. The abnormality was approached from the superior lateral aspect. A Kopans needle was placed adjacent to the abnormality under ultrasound guidance and confirmatory mammography images were obtained to document correct needle placement. Once the needle was documented to be in the correct location, the wire was deployed. The needle was removed. Post-procedure mammographic images were obtained to document positioning. The wire was secured to the patient's skin with a dressing. The patient tolerated the procedure well and left the department in good. Post procedure mammogram confirms location of needle localization. Specimen was obtained and contained both the lesion, clip and the wire. IMPRESSION: Successful mammogram guided wire localization of mass. Pathology Results: Result: Malignant, Invasive ductal carcinoma. A. RIGHT CHEST WALL MASS, EXCISION: Invasive grade 2 ductal breast carcinoma (see note). Hemorrhagic and inflamed biopsy site change with fibrosis and focal fat necrosis present. All margins negative for tumor with closest margin measuring 1 mm from closest anterior margin. Negative for lymphovascular invasion. B. NEW ANTERIOR SKIN MARGIN, EXCISION: Dermis of skin involved by invasive grade 2 ductal breast carcinoma (see note). No diagnostic viable tumor present at inked soft tissue base or skin peripheral edges but tumor closely approaches and measures less than 1 mm from the available inked soft tissue base. Rare minute area of crush artifact at margin staining with CK7 (see note). Negative for dermal lymphovascular invasion. Notes The current's case's tumor is compared to the tumor within the patient's prior right breast 11:00 biopsy (case [id number]), which showed invasive moderately differentiated (grade 2) ductal carcinoma. Tumor within the current case has identical and moderately differentiated (grade 2) features with very focal tubule formation (tubular score 3), moderate nuclear atypia (nuclear score 2), and little to no appreciated mitotic activity (mitotic score 1). The total Tresa score for tumor within the current case is 6 of 9 for this grade 2 ductal invasive carcinoma. Tumor which is identical to what is seen in specimen A is identified within specimen B and measures up to 2 mm in greatest microscopic dimension. The inked deep soft tissue base and peripheral skin edges within specimen B are negative for tumor. However, tumor is very close to and measures less than 1 mm from the closest deep soft tissue base within block B2. Additional and multiple deeper tissue sections are examined from block B2, and the available inked but focally fragmented soft tissue base is negative for lesion. In order to confirm the margin assessment, immunohistochemistry is performed with appropriate controls on blocks with invasive tumor (blocks A7, A8, B1 and B2). Tumor stains positive with CAM 5.2 in A7, weakly positive with MOC-31 in A8, positive for pancytokeratin (AE1/AE3) in block B1, and positive CK7 in block B2. These stains are used to confirm margin negativity, and all of these stains confirm the negative margin assessment in the majority of the areas. A focal cauterized area abundant crush artifact, making interpretation difficult and limited within this area. This finding may represent crushed and cauterized benign tissue. However, close follow-up is suggested, as deemed clinically appropriate. Calponin stainin on block A7 and smooth muscle myosin heavy chain staining on block B2 each stain negative for myoepithelial cells associated with invasive tumor in these sections. These results were discussed with Dr. Jose Alberto Jarrell on 11-20-23 at 12:50 pm. Prognostic immunostaining was performed on the prior right breast 11:00 biopsy (case [id number]) with appropriate controls and was interpreted at the time of prior case review as follows: Ki-67 immunostain performed and evaluated with an appropriate positive control shows a tumor proliferative index of less than 10%. ESTROGEN RECEPTOR (ER): Positive (91-100%), strong intensity staining. PROGESTERONE RECEPTOR (NM): Positive (31-40%), weak to moderate intensity staining. HER2 BY IHC: Negative (score 1+). Overall Assessment: Malignant Management: Surgical Consultation of the right breast. Electronically signed and approved by: Mikie Hall DO
== END 2023-11-13 15:00 | disposition home or self-care (01) ==
LOC: OR 07:55
PROVIDERS: ATTEND Surgery
DX: R22.2 Localized swelling, mass and lump, trunk (principal); C50.911 Malignant neoplasm of unspecified site of right female breast; I10 Essential (primary) hypertension; J45.909 Unspecified asthma, uncomplicated; E07.9 Disorder of thyroid, unspecified; Z79.890 Hormone replacement therapy; Z79.899 Other long term (current) drug therapy; Z88.1 Allergy status to other antibiotic agents
CPT/HCPCS: 21555; 88342; 88307; 88341; 76098; 19285; C1819; J1644; J1100; J0690; J2405; J2001; J3010; J2704

== ENCOUNTER → 2024-04-04 | Outpatient (CLI) | payer MEDICARE, BC ==
[2024-04-04 17:21] LABS: Basophils # (A) 0.04 X 10*3/uL (0.00-0.10); Eosinophils # (A) 0.08 X 10*3/uL (0.04-0.35); HCT 44.9 % (37.2-46.3); HGB 14.8 g/dL (12.0-15.0); Lymphocytes # (A) 1.18 X 10*3/uL (0.90-5.00); Lymphocytes % (A) 29.1 %; MCH 32.2 pg (27.0-32.0); MCV 97.6 FL (80.0-97.0); Mean Platelet Volume 11.2 FL (9.5-12.2); Monocytes # (A) 0.31 X 10*3/uL (0.20-1.00); Monocytes % (A) 7.6 %; NRBC Per 100 WBC 0 X 10*3/uL (0.00-0.01); Neutrophils # (A) 2.44 X 10*3/uL (1.80-7.70); Neutrophils % (A) 60.1 %; Platelet Count 201 X 10*3/uL (140-440); RDW 11.9 % (11.5-14.5); WBC 4.06 X 10*3/uL (4.50-10.00)
[2024-04-04 17:28] LABS: ALT 17 U/L (8-44); AST 22 U/L (13-35); Albumin 4.5 g/dL (3.8-4.9); Albumin/Globulin Ratio 2.14 Ratio (1.60-3.17); Alkaline Phosphatase 80 U/L (41-126); BUN/Creat Ratio 21.57 Ratio (12.00-20.00); Blood Urea Nitrogen 15.1 mg/dL (9.0-27.0); Calcium 9.9 mg/dL (8.7-10.3); Carbon Dioxide 27.4 mmol/L (21.6-31.8); Chloride 106 mmol/L (96-109); Chol/HDL Ratio 2.84 Ratio; Globulin 2.1 g/dL (1.6-3.3); Glucose 100 mg/dL (70-110); LDL Cholesterol,Calculated 109.3 mg/dL (0.0-131.0); Potassium 4.7 mmol/L (3.5-5.5); Sodium 143 mmol/L (135-145); T4, Free (Free Thyroxine) 1.09 ng/dL (0.80-1.80); Total Bilirubin 0.3 mg/dL (0.3-1.2); Total Protein 6.6 g/dL (6.2-8.2); VLDL Calculation 10.54 mg/dL (5.00-40.00)
== END | disposition home or self-care (01) ==
LOC: LABWHC1 08:18
PROVIDERS: ATTEND Internal Medicine Critical Care Medicine
DX: Z00.00 Encounter for general adult medical examination without abnormal findings (principal); C50.119 Malignant neoplasm of central portion of unspecified female breast; F32.9 Major depressive disorder, single episode, unspecified; E03.9 Hypothyroidism, unspecified; F41.9 Anxiety disorder, unspecified
CPT/HCPCS: 36415; 80053; 80061; 82652; 83036; 84439; 84443; 85025

== ENCOUNTER → 2024-07-28 | Outpatient (CLI) | payer MEDICARE, BC ==
--- NOTE | 2024-07-28 10:18 | PE ---
EXAMINATION TYPE: PET CT fusion skull to thigh DATE OF EXAM: 07/28/2024 CLINICAL INDICATION:Female, 68 years old with history of C50.411 Malig neoplasm right female breast; TECHNIQUE: Following the intravenous administration of 11.37 mCi of F-18 FDG, whole body images are performed from the skull base to the midthigh. Images are reviewed on the computer in the coronal, axial, and sagittal planes. Reconstructed rotating images are created on independent workstation and reviewed on the computer. A non-contrast CT is performed in conjunction with the PET scan. Glucose level 91 mg/dL CT DLP: 268.90 mGycm, Automated exposure control for dose reduction was used. COMPARISON: CT 11/05/2023, PET/CT None, MRI: None FINDINGS: Mediastinal SUV mean is 2.0. Hepatic parenchyma SUV mean is 2.6. SKULL BASE AND NECK: No suspicious radiotracer activity. CHEST, MEDIASTINUM, AND HILAR REGION: * Anterior abdominal wall soft tissue/seroma measuring 17 mm max SUV 2.8 no evidence for lymphadenop athy or FDG avid lymph node. * The left breast is surgically absent. No fluid collection the left parotid surgical bed. * No suspicious radiotracer activity. ABDOMEN AND PELVIS: No suspicious radiotracer activity. MUSCULOSKELETAL STRUCTURES: No suspicious radiotracer activity.\ OTHER CT: Bilaterally aphakia. Anterior abdominal wall surgical changes. Hysterectomy changes. Colon ic diverticulosis. Post treatment changes to the anterior right lung. Streaky scarring also present m ore anteriorly and laterally. IMPRESSION: Postoperative changes bilateral breasts with right chest wall seroma with mild peripheral uptake. No evidence for lymphadenopathy or evidence for metastatic disease.
== END | disposition home or self-care (01) ==
LOC: RADPETMAIN 07:48
PROVIDERS: ATTEND Radiology Radiation Oncology
DX: C50.411 Malignant neoplasm of upper-outer quadrant of right female breast (principal); N64.89 Other specified disorders of breast; Z71.3 Dietary counseling and surveillance
CPT/HCPCS: 78815; A9552

== ENCOUNTER → 2024-11-28 | Outpatient (CLI) | payer MEDICARE, BC ==
[2024-11-28 15:29] LABS: ALT 22 U/L (8-44); AST 18 U/L (13-35); Chol/HDL Ratio 2.45 Ratio; LDL Cholesterol,Calculated 83.4 mg/dL (0.0-131.0)
== END | disposition home or self-care (01) ==
LOC: LABWHC1 09:23
PROVIDERS: ATTEND Internal Medicine Interventional Cardiology
DX: E78.2 Mixed hyperlipidemia (principal)
CPT/HCPCS: 36415; 80061; 84450; 84460

== ENCOUNTER → 2025-01-25 | Outpatient (CLI) | payer MEDICARE, BC ==
--- NOTE | 2025-01-27 09:53 | BD ---
EXAMINATION TYPE: Axial Bone Density DATE OF EXAM: 01/25/2025 CLINICAL HISTORY: 69 years old Female. ICD-10 CODE: C50.411 BREAST CANCER , Additional History: Height: 5 ft 2 in Weight: 143 FRAX RISK QUESTIONS: Alcohol (3 or more units per day): no Family History (Parent hip fracture): no Glucocorticoids (More than 3mos): no (Ex: prednisone, prednisolone, methylprednisolone, dexamethasone, and hydrocortisone). History of Fracture in Adulthood: yes Secondary Osteoporosis: 1. Type 1 Diabetes: no 2. Hyperthyroidism: no 3. Menopause before 45: no 4. Malnutrition: no 5. Chronic liver disease: no Rheumatoid Arthritis: no Current Tobacco Use: no RISK FACTORS HISTORY OF: Surgery to Spine/Hip(right/left)/Wrist (right/left): no MEDICATIONS: Thyroid Medications: yes Which medication: levothyroxine How Lon years Osteoporosis Medications: none EXAM MEASUREMENTS: Bone mineral densitometry was performed using the [employer] System. Bone mineral density as measured about the Lumbar spine is: ----- L1-L4(G/cm2): 1.303 T Score Values are as follows: ----- L1: 1.0 ----- L2: 0.2 ----- L3: 0.9 ----- L4: 1.6 ----- L1-L4: 1.0 Z Score Values are as follows: ----- L1: 2.7 ----- L2: 1.9 ----- L3: 2.5 ----- L4: 3.3 ----- L1-L4: 2.7 Bone mineral density has: decreased -1.4 % since study of: 2019 Bone mineral density about the R hip (g/cm2): 0.941 Bone mineral density about the L hip (g/cm2): 0.920 T Score values are as follows: -----R Neck: -0.7 -----L Neck: -0.9 -----R Total: -0.4 -----L Total: -0.2 Z Score values are as follows: -----R Neck: 0.9 -----L Neck: 0.8 -----R Total: 1.0 -----L Total: 1.2 Bone mineral density has: decreased -9.8 % since study of: 2019 FRAX%s: The graph provided illustrates a 13.7 % chance for a major osteoporotic fx and a 1.1 % chance for the hips probability for fx in 10 years time. IMPRESSION: Normal (Values between +1 and -1 indicate normal bone mass). Consider repeating this study in 5 year s or sooner if there is some new clinical indication. NOTE: T-SCORE=SD OF THE YOUNG ADULT MEAN. [facility], , 01/27/2025 9:51 AM
== END | disposition home or self-care (01) ==
LOC: RADBDWWP 12:26
PROVIDERS: ATTEND Internal Medicine Hematology & Oncology
DX: M81.0 Age-related osteoporosis without current pathological fracture (principal); C50.411 Malignant neoplasm of upper-outer quadrant of right female breast; M26.69 Other specified disorders of temporomandibular joint; E03.9 Hypothyroidism, unspecified; M19.90 Unspecified osteoarthritis, unspecified site
CPT/HCPCS: 77080

== ENCOUNTER 2025-02-24 08:55 | Day surgery (SDC) | payer MEDICARE, BC ==
[2025-02-22 10:52] VITALS: BMI 26.6
[~2025-02-24 08:55] MED LIST changes: -ACETAMINOPHEN TAB 500 MG TAB PO PRN; -DEXAMETHASONE SOD PHOSPHATE 4 MG/ML 1 ML VIAL IV ONE; -HEPARIN SODIUM,PORCINE 5,000 UNIT/ML 1 ML VIAL SQ PRN; -HYDROmorphone 0.5 MG/0.5 ML SYRINGE IVP PRN; -LIDOCAINE 1% (10MG/ML) FOR IV START INTRADERMA PRN; -ONDANSETRON 4 MG/2 ML VIAL IVP ONE; -droPERidol 5 MG/2 ML VIAL IVP ONE
[2025-02-24] MEDS: IV FLUID CONTINUATION 1,000 ML IV ONE (09:17)
[2025-02-24] MEDS: ONDANSETRON 4 MG/2 ML VIAL IVP ONE (09:44)
[2025-02-24] MEDS: DEXAMETHASONE SOD PHOSPHATE 4 MG/ML 1 ML VIAL IV ONE (09:44)
[2025-02-24] MEDS: ACETAMINOPHEN TAB 500 MG TAB PO PRN (09:45)
[2025-02-24] MEDS: HEPARIN SODIUM,PORCINE 5,000 UNIT/ML 1 ML VIAL SQ PRN (09:45)
[2025-02-24] MEDS: MIDAZOLAM 2 MG/2 ML VIAL IV PRN (10:22)
[2025-02-24] MEDS ORDERED: PHENYLEPHRINE-0.9% NACL SYG 1,000 MCG/10 ML SYRINGE ONE (10:36)
[2025-02-24] MEDS ORDERED: fentaNYL (PF) 50 MCG/ML 2 ML AMP ONE (10:36)
[2025-02-24] MEDS ORDERED: LIDOCAINE 1% INJ 10MG/ML (20 ML MDV) ONE (10:36)
[2025-02-24] MEDS ORDERED: GLYCOPYRROLATE 0.2 MG/ML 2 ML VIAL ONE (10:36)
[2025-02-24] MEDS ORDERED: PROPOFOL 10 MG/ML 20 ML VIAL IV ONE (10:36)
[2025-02-24] MEDS: BUPIVACAINE (PF) 0.25% 30 ML VIAL SQ ONE ×2 (10:58)
--- NOTE | 2025-02-24 11:32 | P.OP ---
Date of Procedure: 02/24/25 Procedure(s) Performed: PREOPERATIVE DIAGNOSIS: Right chest wall mass POSTOPERATIVE DIAGNOSIS: Same PROCEDURE: Excision right chest wall mass SURGEON: Wesly EBL: 5 cc ANESTHESIA: General COMPLICATIONS: None OPERATIVE PROCEDURE: Patient placed on the operative table in the supine position per the patient was placed under general anesthesia. The right chest wall was prepped and draped sterilely. The patient had an oblong firm nodular area at the site of previous cancer recurrence. This was oriented vertically. The patient had a previous vertical incision there. An elliptical incision was chosen in a vertical fashion encompassing the skin overlying this firm mass as well as the subcutaneous masslike tissues. The subcutaneous layers were divided using electrocautery. We felt that we were able to stay grossly on the outside of this palpable lesion since we were unsure whether this was a recurrent malignancy or not. Posteriorly we were within the muscle layer. The specimen was painted 3 separate colors medial lateral and posterior. This was sent to pathology for permanent sectioning. Flaps were raised medial and laterally. The subcutaneous layers and muscular fascial layers were reapproximated using interrupted 3-0 Vicryl sutures. A drain 10 Ukrainian round was placed just superficial to the chest wall. This exited inferiorly and was sutured to the skin using a 3-0 silk stitch. The skin was reapproximated using a running 4-0 nylon stitch. Sterile dressings applied. DISPOSITION: Stable to recovery room
[2025-02-24 11:42] VITALS: TEMP 96.8
[2025-02-24] MEDS: HYDROmorphone 0.5 MG/0.5 ML SYRINGE IVP PRN (12:21)
[2025-02-24 13:15] VITALS: RESP 14
[2025-02-24 13:58] VITALS: BP 126/64; PULSE 69
[2025-02-24] MEDS ORDERED: ACETAMINOPHEN TAB 325 MG TAB PO SCH (16:00)
== END 2025-02-24 14:25 | disposition home or self-care (01) ==
LOC: OR 08:55
PROVIDERS: ATTEND Surgery
DX: L90.5 Scar conditions and fibrosis of skin (principal); J45.909 Unspecified asthma, uncomplicated; E03.9 Hypothyroidism, unspecified; K21.9 Gastro-esophageal reflux disease without esophagitis; M19.90 Unspecified osteoarthritis, unspecified site; Z85.3 Personal history of malignant neoplasm of breast; Z79.890 Hormone replacement therapy; Z79.899 Other long term (current) drug therapy; Z88.6 Allergy status to analgesic agent; Z88.1 Allergy status to other antibiotic agents
CPT/HCPCS: 88305; 11403; J2250; J1644; J1100; J0690; J2405; J2003; J3010; J2704; J1171; J2371; J0665; J1596